=== PATIENT | male | born 1965 | race Caucasian/White ===

== ENCOUNTER 2016-04-18 10:21 | Emergency (ER) | payer OTHER ==
[~2016-04-18 10:21] MED LIST: /ATOR40TA PO; /FENO48TA PO; /WARF5TA PO; ASPI325T PO; ASPI81TA85 PO; CORE25TA PO; CORE40CA PO; INSULANT SC; LISI5TAB PO; LOVA1CAP16 PO; LOVE0.8I SC; METF500T PO; PERC7.5T12 PO; TYLE325T5 PO; VITAD1000T PO
[2016-04-18] MEDS ORDERED: MORPHINE 4 MG/ML 1ML SYRINGE As Ordered ONE (11:01)
[2016-04-18 11:11] LABS: BASO % 0.4 % (0.0-1.0); EOS # 0.2 K/mm3 (0.0-0.50); LARGE UNSTAINED CELL # 0.2 K/mm3 (0.0-0.4); LARGE UNSTAINED CELL % 2.9 % (0.0-4.0); LYMPH # 2.3 K/mm3 (1.5-4.5); LYMPH % 27.9 % (24.0-44.0); MEAN CORPUSCULAR HGB CONC 34.3 g/dl (32.0-36.5); MEAN CORPUSCULAR VOLUME 93.2 fl (80.0-96.0); MONO # 0.7 K/mm3 (0.0-0.8); MONO % 7.8 % (0.0-5.0); NEUTROPHILS # 4.8 K/mm3 (1.8-7.7); PLATELET COUNT, AUTOMATED 215 k/mm3 (150-450); RED CELL DISTRIBUTION WIDTH 12.6 % (11.5-14.5); WHITE BLOOD COUNT 8.3 K/mm3 (4.0-10.0)
[2016-04-18 11:28] LABS: ALBUMIN 3.8 GM/DL (3.2-5.2); ALBUMIN/GLOBULIN RATIO 1.12 (1.00-1.93); ALKALINE PHOSPHATASE 53 U/L (45-117); ALT/SGPT 47 U/L (12-78); AMYLASE 60 U/L (25-115); ANION GAP 8 MEQ/L (8-16); AST/SGOT 20 U/L (15-37); BILIRUBIN,DIRECT < 0.1 MG/DL (0.0-0.2); BILIRUBIN,TOTAL 0.3 MG/DL (0.2-1.0); BLOOD UREA NITROGEN 15 MG/DL (7-18); CALCIUM LEVEL 9.2 MG/DL (8.5-10.1); CARBON DIOXIDE LEVEL 25 MEQ/L (21-32); CHLORIDE LEVEL 108 MEQ/L (98-107); CREATININE FOR GFR 0.98 MG/DL (0.70-1.30); GLOMERULAR FILTRATION RATE > 60.0 (>56); GLUCOSE, FASTING 251 MG/DL (70-105); POTASSIUM SERUM 4.2 MEQ/L (3.5-5.1); SODIUM LEVEL 141 MEQ/L (136-145); TOTAL PROTEIN 7.2 GM/DL (6.4-8.2)
[2016-04-18] MEDS ORDERED: ISOVUE-370 76% 100ML VIAL (Q9967) As Ordered ONE (11:39)
[2016-04-18] MEDS ORDERED: ONDANSETRON 4MG/2ML VIAL (J2405) As Ordered ONE (13:12)
--- NOTE | 2016-04-18 13:17 | ECGEPIP ---
Stationary ECG Study [facility] - ED Test Date: 2016-04-18 Pat Name: OSEAS DANIELLE Department: Room: - Gender: M Trouble Clerk: kahlil : 1965 Requested By: FABRICE GREEN PA-C. Order Number: [id number] Reading MD: Binta Mallory Measurements Intervals [place] Rate: 66 P: 58 ND: 221 QRS: -69 QRSD: 117 T: -6 QT: 390 QTc: 410 Interpretive Statements SINUS RHYTHM WITH FIRST DEGREE AV BLOCK MARKED LEFT AXIS DEVIATION NSTTW ABNORMALITY ANTEROSEPTAL MYOCARDIAL INFARCTION, OF INDETERMINATE AGE IVCD DECREASED RATE 07/23/12 Electronically Signed On 04-18-2016 13:17:15 EST by Binta Mallory
[2016-04-18] MEDS ORDERED: GI COCKTAIL 50ML BTL(HYOSCYAMINE/MAALOX/LIDOCAINE VISCOUS)(1:3:1) As Ordered ONE (13:41)
--- NOTE | 2016-04-18 13:52 | REP ---
CT of the abdomen and pelvis with IV contrast only, 04/18/2016: Indication: Diverticulitis. Comparison: CTA chest only 07/23/2012, which includes a small portion of upper abdomen in field of view. Technique: Following IV contrast administration with 100 ml Isovue 370 mg/ml, 3 mm spiral axial sections were performed through the abdomen and pelvis. Small amount of dependent atelectasis and/or scarring noted in lung bases bilaterally. Pleural based 6 mm nodular density within the lingula is unchanged from prior study 07/23/2012, therefore considered benign. There is mild diffuse fatty infiltration of liver. Spleen, pancreas, gallbladder are normal. Adrenal glands are normal. Kidneys are without hydronephrosis or obstructing ureteral calculi bilaterally. There are two left renal cortical cysts, largest 3 cm diameter. Stomach is contracted. There is a 10 mm dense focus in the proximal gastric body; may be ingested material versus polyp. Moderate fluid is identified within the small bowel as well as a small fat containing lesion within the distal ileum of 7 mm diameter on image 102, series 201. Atherosclerotic changes are noted in the aorta and iliac arteries. The bladder is contracted, prostate is not enlarged. There are few scattered colonic diverticula and under distension/mild mural thickening within the left colon. There is moderate stool within the right and transverse colon. There is no free air or ascites. 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 Impression: No evidence of diverticulitis. There are fluid-filled small bowel loops and mild mural thickening within the left colon which may be secondary to spasm or mild mural thickening. Findings suggest nonspecific enteritis or gastroenteritis. Two left renal cortical cysts, largest 3 cm diameter. 10 mm filling defect within the proximal gastric body, may represent ingested material versus polyp. 7 mm focus of fat within the distal ileum on image 102, series 201. Consider tiny lipomatous lesion. Clinical follow-up recommended. Signed by Sayra Torres MD 04/19/2016 10:56 A
--- NOTE | 2016-04-18 13:52 | EDDOCDS ---
Physician Documentation [facility] Name: Cesar Hernandez Age: 50 yrs Sex: Male : 1965 Arrival Date: 04/18/2016 Time: 10:21 Bed I7 Private MD: Hans Pereyra Disposition: 04/18/16 13:30 Discharged to Home/Self Care. Impression: Infectious gastroenteritis and colitis, unspecified, Acute gastritis - possible gastric poly on CT scan. - Condition is Stable. - Discharge Instructions: Gastritis, Adult, Viral Gastroenteritis. - Prescriptions for Carafate 1 gram Oral Tablet - take 1 tablet by ORAL route 4 times per day take on an empty stomach, beginning on waking and last dose at bedtime; 20 tablet. Protonix 40 mg Oral Tablet - take 1 tablet by ORAL route once daily; 30 tablet. ZOFRAN ODT 4 mg - dissolve 1 tablet by ORAL route 4 times per day As needed do not chew, do not swallow whole; 10 tablet. - Medication Reconciliation, Local Pharmacy Hours form. - Follow up: Hans Pereyra; When: 4 - 5 days; Reason: Recheck today's complaints, Continuance of care. - Problem is new. - Symptoms have improved. Historical: - Allergies: Versed; - Home Meds: 1. lisinopril 20 mg Oral tab 1 tab bid 2. cyclobenzaprine 10 mg Oral tab 1 tab 3 times per day 3. carvedilol phosphate 40 mg oral CM24 1 cap once daily 4. atorvastatin 40 mg oral tab 1 tab once daily 5. Lantus 100 unit/mL Sub-Q soln 40 units nightly 6. metformin 500 mg Oral tab 4 tabs daily 7. cholecalciferol (vitamin D3) 50,000 unit oral tab monthly 8. fenofibrate 160 mg oral tab 1 tab once daily 9. [place]-3 oral 1000mg oral 2 caps twice a day 10. aspirin 81 mg Oral tab 1 tab once daily - PMHx: [place]; Diabetes - IDDM: controlled; Hypertension; Hypercholesterolemia; - PSHx: AICD implanted; nasal septal surgery; - Social history: Smoking status: Patient uses tobacco products, heavy tobacco smoker. No barriers to communication noted, The patient speaks fluent [place], Speaks appropriately for age. - Family history: Not pertinent. - : The pt / caregiver states he / she is not on anticoagulants. Home medication list is obtained from the patient. - Exposure Risk Screening:: None identified. Vital Signs: 04/18 10:25 BP 138 / 76 LA Sitting (auto/lg); Pulse 75 LA; Resp 18 S; Temp 98.6(O); Pulse Ox 96% on mt4 R/A; Weight 111.13 kg / 245 lbs (R); Height 5 ft. 7 in. (170.18 cm) (R); Pain 10/10; 11:40 BP 148 / 80; Pulse 65; Resp 20; Temp 98.0; Pulse Ox 96% ; Pain 2/10; jam1 13:34 BP 148 / 90; Pulse 63; Resp 20; Temp 97.4; Pulse Ox 96% ; Pain 6/10; jam1 10:25 Body Mass Index 38.37 (111.13 kg, 170.18 cm) mt4 MDM: 10:44 Financial registration complete. lg 10:48 IV Saline Lock ordered. ar2 10:48 Undress patient appropriately for examination ordered. ar2 10:48 NS 0.9% 1000 ml IV at 250 mL/hr continuous ordered. ar2 10:48 morphine 4 mg IVP once ordered. ar2 10:49 Amylase Ordered. EDMS 10:49 Basic Metabolic Profile Ordered. EDMS 10:49 CBC with Diff Ordered. EDMS 10:49 Lipase Ordered. EDMS 10:49 Liver Profile Ordered. EDMS 10:49 NOTHING BY MOUTH+DIET ordered. EDMS 10:49 ECG WITH READING ER PHYS+CARDIAG ordered. EDMS 10:49 CT ABD & PELVIS: IV Contrast Only Ordered. EDMS 11:13 [facility] Payment Agreement was scanned into [employer] and attached to record. lg 12:24 Basic Metabolic Profile Reviewed. ar2 12:24 CBC with Diff Reviewed. ar2 12:24 Amylase Reviewed. ar2 12:24 Lipase Reviewed. ar2 12:24 Liver Profile Reviewed. ar2 12:27 UA Ordered. EDMS 12:40 TROPONIN Ordered. EDMS 13:09 Ondansetron 4 mg IVP once ordered. ar2 13:09 Basic Metabolic Profile Reviewed. ar2 13:09 Amylase Reviewed. ar2 13:09 Lipase Reviewed. ar2 13:09 Liver Profile Reviewed. ar2 13:09 TROPONIN Reviewed. ar2 13:29 GI Cocktail - (Alum-Mag Hydroxide-Simeth 30 ml, Lidocaine 10 ml, Hyoscyamine 10 ml) PO ar2 once; Pre-mixed 50mL unit dose ordered. Administered Medications: 11:07 Drug: NS 0.9% 1000 ml [sodium chloride 0.9 % intravenous solution] Route: IV; Rate: 250 dls mL/hr; Site: right hand; 11:07 Drug: morphine 4 mg [morphine 4 mg/mL intravenous cartridge (1 mL)] Route: IVP; Site: dls right hand; 13:17 Drug: Ondansetron 4 mg [ondansetron HCl 2 mg/mL intravenous solution (2 mL)] Route: dls IVP; Site: right antecubital; 13:48 Follow up: Response: Nausea is decreased dls 13:47 Drug: GI Cocktail - (Alum-Mag Hydroxide-Simeth Suspension 225 mg-200 mg-25 mg/5 mL 30 dls ml, Lidocaine Liquid 2 % 10 ml, Hyoscyamine Liquid 10 ml) Route: PO; 13:48 Follow up: Response: Pt left department before re-evaluation is appropriate dls Signatures: Dispatcher [employer] EDCristela Reeder, RN RN dls Augustina Rocha, Reg Reg lg Tawny ColoradoRN RN jo3 Eleno Saucedo PA-C PAVee ar2 Nika Moreno RN RN ttb The chart was reviewed and I authenticate all verbal orders and agree with the evaluation and treatment provided.Corrections: (The following items were deleted from the chart) 12:41 12:29 TROPONIN+LAB ordered. EDMS EDMS Attachments: 11:13 [facility] Payment Agreement lg MTDD
--- NOTE | 2016-04-18 13:52 | EDDOCDS ---
Nurse's Notes [facility] Name: Cesar Hernandez Age: 50 yrs Sex: Male : 1965 Arrival Date: 04/18/2016 Time: 10:21 Bed I7 / 29 Private MD: Hans Pereyra Diagnosis: Infectious gastroenteritis and colitis, unspecified;Acute gastritis-possible gastric poly on CT scan Presentation: 04/18 10:27 Presenting complaint: Patient states: Left upper abdominal pain which started Tuesday jo3 morning. Occurred the first time approximately 1 month ago and PCP told him it was a pulled muscle. Pain increases when pt coughs and moves. Adult Sepsis Screening: The patient does not have new or worsening altered mentation. Patient's respiratory rate is less than 22. Systolic blood pressure is greater than 100. Patient has a qSOFA score of 0- Negative Sepsis Screen. Suicide/Homicide risk assessment- the patient denies having any suicidal and/or homicidal ideations and does not present with any other emotional, behavioral or mental health complaints. Status: Patient is not a food services coordinator or dependent. Transition of care: patient was not received from another setting of care. 10:27 Acuity: LETICIA Level 3 jo3 10:27 Method Of Arrival: Walkin/Carried/Asstd jo3 Triage Assessment: 10:35 General: Appears in no apparent distress, comfortable, Behavior is appropriate for age, jo3 cooperative, pleasant. Pain: Location: Left upper quadrant. HIV screening NA for this visit Offered previously. Neurological: Level of Consciousness is awake, alert, Oriented to person, place, time. Respiratory: Airway is patent Respiratory effort is even, unlabored. Derm: Skin is pink, warm & dry. Historical: - Allergies: Versed; - Home Meds: 1. lisinopril 20 mg Oral tab 1 tab bid 2. cyclobenzaprine 10 mg Oral tab 1 tab 3 times per day 3. carvedilol phosphate 40 mg oral CM24 1 cap once daily 4. atorvastatin 40 mg oral tab 1 tab once daily 5. Lantus 100 unit/mL Sub-Q soln 40 units nightly 6. metformin 500 mg Oral tab 4 tabs daily 7. cholecalciferol (vitamin D3) 50,000 unit oral tab monthly 8. fenofibrate 160 mg oral tab 1 tab once daily 9. [place]-3 oral 1000mg oral 2 caps twice a day 10. aspirin 81 mg Oral tab 1 tab once daily - PMHx: [place]; Diabetes - IDDM: controlled; Hypertension; Hypercholesterolemia; - PSHx: AICD implanted; nasal septal surgery; - Social history: Smoking status: Patient uses tobacco products, heavy tobacco smoker. No barriers to communication noted, The patient speaks fluent [place], Speaks appropriately for age. - Family history: Not pertinent. - : The pt / caregiver states he / she is not on anticoagulants. Home medication list is obtained from the patient. - Exposure Risk Screening:: None identified. Screenin:37 Screening information is obtained from the patient. Primary language is [place]. Fall jam1 risk: No risks identified. Assistance ADL's: requires no assistance with activities of daily living. Abuse/DV Screen: The patient / caregiver reports he/she is: not in a situation that causes fear, pain or injury. Nutritional screening: No deficits noted. Exposure Risk Screening: None identified. Advance Directives: Currently, there is no health care proxy. There is no active DNR order. There is no living will. There is no Power of Cooker Casing. Advance directive information has not previously been placed in an [facility] medical record. Further advance directive information is declined. home support is adequate. Assessment: 10:59 General: Appears in no apparent distress, well nourished, Behavior is appropriate for ttb age, cooperative, pleasant. Pain: Location: left upper quad. Neurological: Level of Consciousness is awake, alert. Cardiovascular: Chest pain is denied. Respiratory: Airway is patent Respiratory effort is even, unlabored, Denies cough, shortness of breath. GI: Abdomen is obese, Reports upper abdominal pain, nausea, Denies constipation, diarrhea, vomiting. : Denies burning with urination, urinary frequency, urgency. Derm: Skin is normal. Injury Description: No known injury. 11:51 General: Appears in no apparent distress, Behavior is cooperative, pt instructed to not mb9 take is metformin for the next [address] with IV contrast. pt instructed to follow up with his PHCP in regards to his metformin in the AM on 04/19/16. pt verbalized his understanding. . Respiratory: Airway is patent Respiratory effort is even, unlabored. Vital Signs: 10:25 BP 138 / 76 LA Sitting (auto/lg); Pulse 75 LA; Resp 18 S; Temp 98.6(O); Pulse Ox 96% on mt4 R/A; Weight 111.13 kg (R); Height 5 ft. 7 in. (170.18 cm) (R); Pain 10/10; 11:40 BP 148 / 80; Pulse 65; Resp 20; Temp 98.0; Pulse Ox 96% ; Pain 2/10; jam1 13:34 BP 148 / 90; Pulse 63; Resp 20; Temp 97.4; Pulse Ox 96% ; Pain 6/10; jam1 10:25 Body Mass Index 38.37 (111.13 kg, 170.18 cm) mt4 Vitals: 10:25 Log In Time: April 18, 2016 at 10:21. mt4 10:25 RN notified that patient meets Red Flag criteria. mt4 ED Course: 10:24 Patient visited by Anahi Singh. mt4 10:24 Hans Pereyra is Private Physician. mt4 10:24 Patient moved to Waiting mt4 10:29 Triage Initiated jo3 10:33 Patient moved to Pre RCE kr3 10:37 Patient visited by Tawny Colorado RN. jo3 10:37 Patient moved to Triage 2 jo3 10:39 Fab[facility] Green [facility]. ar2 10:39 Aries Roy MD is Attending Physician. ar2 10:39 Patient visited by Fabrice Green PA-C. ar2 10:47 Patient moved to I7 / kr3 10:59 Amylase Sent. ttb 10:59 Basic Metabolic Profile Sent. ttb 10:59 CBC with Diff Sent. ttb 10:59 Lipase Sent. ttb 10:59 Liver Profile Sent. ttb 11:01 Patient visited by Nika Moreno RN. ttb 11:02 Pt greeted and oriented to ED. Patient advised of names of staff involved in care, [facility] location of call mena, wait times and NPO status. Patient has correct armband on for positive identification. Placed in gown. Bed in low position. Call light in reach. Side rails up X 1. Adult w/ patient. Door closed. 11:13 [facility] Payment Agreement was scanned into [employer] and attached to record. lg 11:51 Patient visited by Carlos Chua,JOSIE. mb9 12:57 Patient has correct armband on for positive identification. Bed in low position. Call jam1 light in reach. Side rails up X 1. Door closed. 13:09 Patient visited by Cristela Diaz RN. dls 13:10 UA Sent. dls 13:30 Hans Pereyra is Referral Physician. ar2 13:33 Patient visited by Lindy Teran PCA. jam1 13:43 EKG-ADULT Returned. EDMS 13:49 Discontinued IV lock intact, bleeding controlled, pressure dressing applied, No dls redness/swelling at site. No procedures done that require assistance. 13:50 The patient / caregiver is instructed regarding the plan of care and ED course. dls Administered Medications: 11:07 Drug: NS 0.9% 1000 ml [sodium chloride 0.9 % intravenous solution] Route: IV; Rate: 250 dls mL/hr; Site: right hand; 11:07 Drug: morphine 4 mg [morphine 4 mg/mL intravenous cartridge (1 mL)] Route: IVP; Site: dls right hand; 13:17 Drug: Ondansetron 4 mg [ondansetron HCl 2 mg/mL intravenous solution (2 mL)] Route: dls IVP; Site: right antecubital; 13:48 Follow up: Response: Nausea is decreased dls 13:47 Drug: GI Cocktail - (Alum-Mag Hydroxide-Simeth Suspension 225 mg-200 mg-25 mg/5 mL 30 dls ml, Lidocaine Liquid 2 % 10 ml, Hyoscyamine Liquid 10 ml) Route: PO; 13:48 Follow up: Response: Pt left department before re-evaluation is appropriate dls Order Results: Lab Order: Amylase; SPEC'M 04/18/16 10:51 Test: AMYLASE; Value: 60; Range: 25-115; Units: U/L; Status: F Lab Order: Basic Metabolic Profile; SPEC'M 04/18/16 10:51 Test: GLUCOSE, FASTING; Value: 251; Range: 70-105; Abnormal: Above high normal; Units: MG/DL; Status: F Test: BLOOD UREA NITROGEN; Value: 15; Range: 7-18; Units: MG/DL; Status: F Test: CREATININE FOR GFR; Value: 0.98; Range: 0.70-1.30; Units: MG/DL; Status: F Test: GLOMERULAR FILTRATION RATE; Value: > 60.0; Range: >56; Status: F Test: SODIUM LEVEL; Value: 141; Range: 136-145; Units: MEQ/L; Status: F Test: POTASSIUM SERUM; Value: 4.2; Range: 3.5-5.1; Units: MEQ/L; Status: F Test: CHLORIDE LEVEL; Value: 108; Range: 98-107; Abnormal: Above high normal; Units: MEQ/L; Status: F Test: CARBON DIOXIDE LEVEL; Value: 25; Range: 21-32; Units: MEQ/L; Status: F Test: ANION GAP; Value: 8; Range: 8-16; Units: MEQ/L; Status: F Test: CALCIUM LEVEL; Value: 9.2; Range: 8.5-10.1; Units: MG/DL; Status: F Test Note: ; Units are mL/min/1.73 m2 Chronic Kidney Disease Staging per NKF: Stage I & II GFR >=60 Normal to Mildly Decreased Stage III GFR 30-59 Moderately Decreased Stage IV GFR 15-29 Severely Decreased Stage V GFR <15 Very Little GFR Left ESRD GFR <15 on LAMINATION INSPECTOR Lab Order: CBC with Diff; SPEC'M 04/18/16 10:51 Test: WHITE BLOOD COUNT; Value: 8.3; Range: 4.0-10.0; Units: K/mm3; Status: F Test: RED BLOOD COUNT; Value: 4.70; Range: 4.30-6.10; Units: M/mm3; Status: F Test: HEMOGLOBIN; Value: 15.0; Range: 14.0-18.0; Units: g/dl; Status: F Test: HEMATOCRIT; Value: 43.7; Range: 42.0-52.0; Units: %; Status: F Test: MEAN CORPUSCULAR VOLUME; Value: 93.2; Range: 80.0-96.0; Units: fl; Status: F Test: MEAN CORPUSCULAR HEMOGLOBIN; Value: 32.0; Range: 27.0-33.0; Units: pg; Status: F Test: MEAN CORPUSCULAR HGB CONC; Value: 34.3; Range: 32.0-36.5; Units: g/dl; Status: F Test: RED CELL DISTRIBUTION WIDTH; Value: 12.6; Range: 11.5-14.5; Units: %; Status: F Test: PLATELET COUNT, AUTOMATED; Value: 215; Range: 150-450; Units: k/mm3; Status: F Test: NEUTROPHILS %; Value: 58.0; Range: 36.0-66.0; Units: %; Status: F Test: LYMPH %; Value: 27.9; Range: 24.0-44.0; Units: %; Status: F Test: MONO %; Value: 7.8; Range: 0.0-5.0; Abnormal: Above high normal; Units: %; Status: F Test: EOS %; Value: 3.0; Range: 0.0-3.0; Units: %; Status: F Test: BASO %; Value: 0.4; Range: 0.0-1.0; Units: %; Status: F Test: LARGE UNSTAINED CELL %; Value: 2.9; Range: 0.0-4.0; Units: %; Status: F Test: NEUTROPHILS #; Value: 4.8; Range: 1.8-7.7; Units: K/mm3; Status: F Test: LYMPH #; Value: 2.3; Range: 1.5-4.5; Units: K/mm3; Status: F Test: MONO #; Value: 0.7; Range: 0.0-0.8; Units: K/mm3; Status: F Test: EOS #; Value: 0.2; Range: 0.0-0.50; Units: K/mm3; Status: F Test: BASO #; Value: 0.0; Range: 0.0-0.2; Units: K/mm3; Status: F Test: LARGE UNSTAINED CELL #; Value: 0.2; Range: 0.0-0.4; Units: K/mm3; Status: F Lab Order: Lipase; SPEC'M 04/18/16 10:51 Test: LIPASE; Value: 150; Range: 73-393; Units: U/L; Status: F Lab Order: Liver Profile; SPEC'M 04/18/16 10:51 Test: AST/SGOT; Value: 20; Range: 15-37; Units: U/L; Status: F Test: ALT/SGPT; Value: 47; Range: 12-78; Units: U/L; Status: F Test: ALKALINE PHOSPHATASE; Value: 53; Range: 45-117; Units: U/L; Status: F Test: BILIRUBIN,TOTAL; Value: 0.3; Range: 0.2-1.0; Units: MG/DL; Status: F Test: BILIRUBIN,DIRECT; Value: < 0.1; Range: 0.0-0.2; Units: MG/DL; Status: F Test: TOTAL PROTEIN; Value: 7.2; Range: 6.4-8.2; Units: GM/DL; Status: F Test: ALBUMIN; Value: 3.8; Range: 3.2-5.2; Units: GM/DL; Status: F Test: ALBUMIN/GLOBULIN RATIO; Value: 1.12; Range: 1.00-1.93; Status: F Lab Order: UA; SPEC'M 04/18/16 13:05 Test: APPEARANCE, URINE; Value: CLEAR; Range: CLEAR; Status: F Test: COLOR, URINE; Value: YELLOW; Range: YELLOW; Status: F Test: PH,URINE; Value: 6.0; Range: 5.0-9.0; Units: UNITS; Status: F Test: SPECIFIC GRAVITY URINE AUTO; Value: 1.012; Range: 1.002-1.035; Status: F Test: PROTEIN, URINE AUTO; Value: NEGATIVE; Range: NEGATIVE; Units: mg/dL; Status: F Test: GLUCOSE, URINE (UA) AUTO; Value: 2+; Range: NEGATIVE; Abnormal: Above high normal; Units: mg/dL; Status: F Test: KETONE, URINE AUTO; Value: NEGATIVE; Range: NEGATIVE; Units: mg/dL; Status: F Test: UROBILINOGEN, URINE AUTO; Value: 0.2; Range: 0.0-2.0; Units: mg/dL; Status: F Test: BILIRUBIN, URINE AUTO; Value: NEGATIVE; Range: NEGATIVE; Status: F Test: NITRITE, URINE AUTO; Value: NEGATIVE; Range: NEGATIVE; Status: F Test: LEUKOCYTE ESTERASE, URINE AUTO; Value: NEGATIVE; Range: NEGATIVE; Status: F Test: BLOOD, URINE BLOOD; Value: NEGATIVE; Range: NEGATIVE; Status: F Test: WBC, URINE AUTO; Value: 0; Range: 0-3; Units: /HPF; Status: F Test: RBC, URINE AUTO; Value: 2; Range: 0-3; Units: /HPF; Status: F Test: BACTERIA, URINE AUTO; Value: NEGATIVE; Range: NEGATIVE; Status: F Test: SQUAMOUS EPITHELIAL CELL UR AU; Value: 0; Range: 0-6; Units: /HPF; Status: F Test: HYALINE CAST, URINE AUTO; Value: 0; Range: 0-1; Units: /LPF; Status: F Lab Order: TROPONIN; SPEC'M 04/18/16 10:51 Test: TROPONIN I; Value: < 0.02; Range: < 0.10; Units: NG/ML; Status: F Test Note: ; Troponin I Reference Interval for Siemens Synack LOCI: 99th Percentile= 0.00-0.045 ng/ml Risk Stratification: <= 0.10 ng/ml Decreased Risk for Adverse Clinical Events. 0.10-1.50 ng/ml Increased Risk for Adverse Clinical Events. Evaluation of additional criterion and/or repeat testing in 2-6 hours is suggested to rule out myocardial damage. >= 1.50 ng/ml Indicative of Myocardial Injury. Radiology Order: EKG-ADULT Test: EKG-ADULT REASON FOR EXAMINATION: upper abdominal pain; Stationary ECG Study; [facility] - ED; ; Test Date: 2016-04-18; Pat Name: CESAR HERNANDEZ Department:; Room: -; Gender: M Manager Water: kahlil; : 1965 Requested By: FABRICE GREEN PA-C.; Order Number: [id number] Reading MD: Binta Mallory; Measurements; Intervals [place]; Rate: 66 P: 58; [place]: 221 QRS: -69; QRSD: 117 T: -6; QT: 390; QTc: 410; Interpretive Statements; SINUS RHYTHM WITH FIRST DEGREE AV BLOCK; MARKED LEFT AXIS DEVIATION; NSTTW ABNORMALITY; ANTEROSEPTAL MYOCARDIAL INFARCTION, OF INDETERMINATE AGE; IVCD; DECREASED RATE 07/23/12; Electronically Signed On 04-18-2016 13:17:15 EST by Binta Mallory; Outcome: 13:30 Discharge ordered by Provider. ar2 13:49 Discharge Assessment: Patient awake, alert and oriented x 3. No cognitive and/or dls functional deficits noted. Patient verbalized understanding of disposition instructions. patient administered narcotics - no. The following High Risk Discharge criteria are identified: None. Discharged to home ambulatory, with family. Condition: stable. Discharge instructions given to patient, Instructed on discharge instructions, follow up and referral plans. medication usage, Demonstrated understanding of instructions, medications, Pt was receptive of discharge instructions/ teaching. Prescriptions given X 3. CT Study completed. Property :Personal belongings accompany Pt. 13:50 Patient left the ED. dls Signatures: Dispatcher [employer] EDMS Cristela Diaz, RN RN dls Lindy Teran, PAINTING TECHNICIAN PAINTING TECHNICIAN jam1 Augustina Rocha, Reg Reg lg Claudine Iniguez,RN RN kr3 Tawny ColoradoRN RN tee3 Fabrice Green, PA-C PA-C shandra2 Anahi Singh mt4 Nika Moreno, RN RN Carlos MorinRN RN mb9 MTDPhilip
--- NOTE | 2016-04-20 14:52 | EDDOCDS ---
Nurse's Notes [facility] Name: Cesar Hernandez Age: 50 yrs Sex: Male : 1965 Arrival Date: 04/18/2016 Time: 10:21 Bed I7 / 29 Private MD: Hans Pereyra Diagnosis: Infectious gastroenteritis and colitis, unspecified;Acute gastritis-possible gastric poly on CT scan Presentation: 04/18 10:27 Presenting complaint: Patient states: Left upper abdominal pain which started Tuesday jo3 morning. Occurred the first time approximately 1 month ago and PCP told him it was a pulled muscle. Pain increases when pt coughs and moves. Adult Sepsis Screening: The patient does not have new or worsening altered mentation. Patient's respiratory rate is less than 22. Systolic blood pressure is greater than 100. Patient has a qSOFA score of 0- Negative Sepsis Screen. Suicide/Homicide risk assessment- the patient denies having any suicidal and/or homicidal ideations and does not present with any other emotional, behavioral or mental health complaints. Status: Patient is not a family services specialist or dependent. Transition of care: patient was not received from another setting of care. 10:27 Acuity: LETICIA Level 3 jo3 10:27 Method Of Arrival: Walkin/Carried/Asstd jo3 Triage Assessment: 10:35 General: Appears in no apparent distress, comfortable, Behavior is appropriate for age, jo3 cooperative, pleasant. Pain: Location: Left upper quadrant. HIV screening NA for this visit Offered previously. Neurological: Level of Consciousness is awake, alert, Oriented to person, place, time. Respiratory: Airway is patent Respiratory effort is even, unlabored. Derm: Skin is pink, warm & dry. Historical: - Allergies: Versed; - Home Meds: 1. lisinopril 20 mg Oral tab 1 tab bid 2. cyclobenzaprine 10 mg Oral tab 1 tab 3 times per day 3. carvedilol phosphate 40 mg oral CM24 1 cap once daily 4. atorvastatin 40 mg oral tab 1 tab once daily 5. Lantus 100 unit/mL Sub-Q soln 40 units nightly 6. metformin 500 mg Oral tab 4 tabs daily 7. cholecalciferol (vitamin D3) 50,000 unit oral tab monthly 8. fenofibrate 160 mg oral tab 1 tab once daily 9. [place]-3 oral 1000mg oral 2 caps twice a day 10. aspirin 81 mg Oral tab 1 tab once daily - PMHx: [place]; Diabetes - IDDM: controlled; Hypertension; Hypercholesterolemia; - PSHx: AICD implanted; nasal septal surgery; - Social history: Smoking status: Patient uses tobacco products, heavy tobacco smoker. No barriers to communication noted, The patient speaks fluent Danish, Speaks appropriately for age. - Family history: Not pertinent. - : The pt / caregiver states he / she is not on anticoagulants. Home medication list is obtained from the patient. - Exposure Risk Screening:: None identified. Screenin:37 Screening information is obtained from the patient. Primary language is Danish. Fall jam1 risk: No risks identified. Assistance ADL's: requires no assistance with activities of daily living. Abuse/DV Screen: The patient / caregiver reports he/she is: not in a situation that causes fear, pain or injury. Nutritional screening: No deficits noted. Exposure Risk Screening: None identified. Advance Directives: Currently, there is no health care proxy. There is no active DNR order. There is no living will. There is no Power of Gravity Prospector. Advance directive information has not previously been placed in an [facility] medical record. Further advance directive information is declined. home support is adequate. Assessment: 10:59 General: Appears in no apparent distress, well nourished, Behavior is appropriate for ttb age, cooperative, pleasant. Pain: Location: left upper quad. Neurological: Level of Consciousness is awake, alert. Cardiovascular: Chest pain is denied. Respiratory: Airway is patent Respiratory effort is even, unlabored, Denies cough, shortness of breath. GI: Abdomen is obese, Reports upper abdominal pain, nausea, Denies constipation, diarrhea, vomiting. : Denies burning with urination, urinary frequency, urgency. Derm: Skin is normal. Injury Description: No known injury. 11:51 General: Appears in no apparent distress, Behavior is cooperative, pt instructed to not mb9 take is metformin for the next [address] with IV contrast. pt instructed to follow up with his PHCP in regards to his metformin in the AM on 04/19/16. pt verbalized his understanding. . Respiratory: Airway is patent Respiratory effort is even, unlabored. Vital Signs: 10:25 BP 138 / 76 LA Sitting (auto/lg); Pulse 75 LA; Resp 18 S; Temp 98.6(O); Pulse Ox 96% on mt4 R/A; Weight 111.13 kg (R); Height 5 ft. 7 in. (170.18 cm) (R); Pain 10/10; 11:40 BP 148 / 80; Pulse 65; Resp 20; Temp 98.0; Pulse Ox 96% ; Pain 2/10; jam1 13:34 BP 148 / 90; Pulse 63; Resp 20; Temp 97.4; Pulse Ox 96% ; Pain 6/10; jam1 10:25 Body Mass Index 38.37 (111.13 kg, 170.18 cm) mt4 Vitals: 10:25 Log In Time: April 18, 2016 at 10:21. mt4 10:25 RN notified that patient meets Red Flag criteria. mt4 ED Course: 10:24 Patient visited by Anahi Singh. mt4 10:24 Hans Pereyra is Private Physician. mt4 10:24 Patient moved to Waiting mt4 10:29 Triage Initiated jo3 10:33 Patient moved to Pre RCE kr3 10:37 Patient visited by Tawny Colorado RN. jo3 10:37 Patient moved to Triage 2 jo3 10:39 [facility] ar2 10:39 Aries Roy MD is Attending Physician. ar2 10:39 Patient visited by Fabrice Saucedo PA-C. ar2 10:47 Patient moved to I7 / kr3 10:59 Amylase Sent. ttb 10:59 Basic Metabolic Profile Sent. ttb 10:59 CBC with Diff Sent. ttb 10:59 Lipase Sent. ttb 10:59 Liver Profile Sent. ttb 11:01 Patient visited by Nika Moreno RN. ttb 11:02 Pt greeted and oriented to ED. Patient advised of names of staff involved in care, [facility] location of call mena, wait times and NPO status. Patient has correct armband on for positive identification. Placed in gown. Bed in low position. Call light in reach. Side rails up X 1. Adult w/ patient. Door closed. 11:13 [facility] Payment Agreement was scanned into [employer] and attached to record. lg 11:51 Patient visited by Carlos Chua,JOSIE. mb9 12:57 Patient has correct armband on for positive identification. Bed in low position. Call jam1 light in reach. Side rails up X 1. Door closed. 13:09 Patient visited by Cristela Diaz RN. dls 13:10 UA Sent. dls 13:30 Hans Pereyra is Referral Physician. ar2 13:33 Patient visited by Lindy Teran PCA. jam1 13:43 EKG-ADULT Returned. EDMS 13:49 Discontinued IV lock intact, bleeding controlled, pressure dressing applied, No dls redness/swelling at site. No procedures done that require assistance. 13:50 The patient / caregiver is instructed regarding the plan of care and ED course. dls 14:20 CT ABD & PELVIS: IV Contrast Only Returned. EDMS 17:33 ECG/EKG was scanned into [employer] and attached to record. kf3 19:53 T-Sheet-- Draft Copy was scanned into [employer] and attached to record. klr Administered Medications: 11:07 Drug: NS 0.9% 1000 ml [sodium chloride 0.9 % intravenous solution] Route: IV; Rate: 250 dls mL/hr; Site: right hand; 11:07 Drug: morphine 4 mg [morphine 4 mg/mL intravenous cartridge (1 mL)] Route: IVP; Site: dls right hand; 13:17 Drug: Ondansetron 4 mg [ondansetron HCl 2 mg/mL intravenous solution (2 mL)] Route: dls IVP; Site: right antecubital; 13:48 Follow up: Response: Nausea is decreased dls 13:47 Drug: GI Cocktail - (Alum-Mag Hydroxide-Simeth Suspension 225 mg-200 mg-25 mg/5 mL 30 dls ml, Lidocaine Liquid 2 % 10 ml, Hyoscyamine Liquid 10 ml) Route: PO; 13:48 Follow up: Response: Pt left department before re-evaluation is appropriate dls Order Results: Lab Order: Amylase; SPEC'M 04/18/16 10:51 Test: AMYLASE; Value: 60; Range: 25-115; Units: U/L; Status: F Lab Order: Basic Metabolic Profile; SPEC'M 04/18/16 10:51 Test: GLUCOSE, FASTING; Value: 251; Range: 70-105; Abnormal: Above high normal; Units: MG/DL; Status: F Test: BLOOD UREA NITROGEN; Value: 15; Range: 7-18; Units: MG/DL; Status: F Test: CREATININE FOR GFR; Value: 0.98; Range: 0.70-1.30; Units: MG/DL; Status: F Test: GLOMERULAR FILTRATION RATE; Value: > 60.0; Range: >56; Status: F Test: SODIUM LEVEL; Value: 141; Range: 136-145; Units: MEQ/L; Status: F Test: POTASSIUM SERUM; Value: 4.2; Range: 3.5-5.1; Units: MEQ/L; Status: F Test: CHLORIDE LEVEL; Value: 108; Range: 98-107; Abnormal: Above high normal; Units: MEQ/L; Status: F Test: CARBON DIOXIDE LEVEL; Value: 25; Range: 21-32; Units: MEQ/L; Status: F Test: ANION GAP; Value: 8; Range: 8-16; Units: MEQ/L; Status: F Test: CALCIUM LEVEL; Value: 9.2; Range: 8.5-10.1; Units: MG/DL; Status: F Test Note: ; Units are mL/min/1.73 m2 Chronic Kidney Disease Staging per NKF: Stage I & II GFR >=60 Normal to Mildly Decreased Stage III GFR 30-59 Moderately Decreased Stage IV GFR 15-29 Severely Decreased Stage V GFR <15 Very Little GFR Left ESRD GFR <15 on [employer] [employer] Lab Order: CBC with Diff; SPEC'M 04/18/16 10:51 Test: WHITE BLOOD COUNT; Value: 8.3; Range: 4.0-10.0; Units: K/mm3; Status: F Test: RED BLOOD COUNT; Value: 4.70; Range: 4.30-6.10; Units: M/mm3; Status: F Test: HEMOGLOBIN; Value: 15.0; Range: 14.0-18.0; Units: g/dl; Status: F Test: HEMATOCRIT; Value: 43.7; Range: 42.0-52.0; Units: %; Status: F Test: MEAN CORPUSCULAR VOLUME; Value: 93.2; Range: 80.0-96.0; Units: fl; Status: F Test: MEAN CORPUSCULAR HEMOGLOBIN; Value: 32.0; Range: 27.0-33.0; Units: pg; Status: F Test: MEAN CORPUSCULAR HGB CONC; Value: 34.3; Range: 32.0-36.5; Units: g/dl; Status: F Test: RED CELL DISTRIBUTION WIDTH; Value: 12.6; Range: 11.5-14.5; Units: %; Status: F Test: PLATELET COUNT, AUTOMATED; Value: 215; Range: 150-450; Units: k/mm3; Status: F Test: NEUTROPHILS %; Value: 58.0; Range: 36.0-66.0; Units: %; Status: F Test: LYMPH %; Value: 27.9; Range: 24.0-44.0; Units: %; Status: F Test: MONO %; Value: 7.8; Range: 0.0-5.0; Abnormal: Above high normal; Units: %; Status: F Test: EOS %; Value: 3.0; Range: 0.0-3.0; Units: %; Status: F Test: BASO %; Value: 0.4; Range: 0.0-1.0; Units: %; Status: F Test: LARGE UNSTAINED CELL %; Value: 2.9; Range: 0.0-4.0; Units: %; Status: F Test: NEUTROPHILS #; Value: 4.8; Range: 1.8-7.7; Units: K/mm3; Status: F Test: LYMPH #; Value: 2.3; Range: 1.5-4.5; Units: K/mm3; Status: F Test: MONO #; Value: 0.7; Range: 0.0-0.8; Units: K/mm3; Status: F Test: EOS #; Value: 0.2; Range: 0.0-0.50; Units: K/mm3; Status: F Test: BASO #; Value: 0.0; Range: 0.0-0.2; Units: K/mm3; Status: F Test: LARGE UNSTAINED CELL #; Value: 0.2; Range: 0.0-0.4; Units: K/mm3; Status: F Lab Order: Lipase; SPEC'M 04/18/16 10:51 Test: LIPASE; Value: 150; Range: 73-393; Units: U/L; Status: F Lab Order: Liver Profile; SPEC'M 04/18/16 10:51 Test: AST/SGOT; Value: 20; Range: 15-37; Units: U/L; Status: F Test: ALT/SGPT; Value: 47; Range: 12-78; Units: U/L; Status: F Test: ALKALINE PHOSPHATASE; Value: 53; Range: 45-117; Units: U/L; Status: F Test: BILIRUBIN,TOTAL; Value: 0.3; Range: 0.2-1.0; Units: MG/DL; Status: F Test: BILIRUBIN,DIRECT; Value: < 0.1; Range: 0.0-0.2; Units: MG/DL; Status: F Test: TOTAL PROTEIN; Value: 7.2; Range: 6.4-8.2; Units: GM/DL; Status: F Test: ALBUMIN; Value: 3.8; Range: 3.2-5.2; Units: GM/DL; Status: F Test: ALBUMIN/GLOBULIN RATIO; Value: 1.12; Range: 1.00-1.93; Status: F Lab Order: ; SPEC'M 04/18/16 13:05 Test: APPEARANCE, URINE; Value: CLEAR; Range: CLEAR; Status: F Test: COLOR, URINE; Value: YELLOW; Range: YELLOW; Status: F Test: PH,URINE; Value: 6.0; Range: 5.0-9.0; Units: UNITS; Status: F Test: SPECIFIC GRAVITY URINE AUTO; Value: 1.012; Range: 1.002-1.035; Status: F Test: PROTEIN, URINE AUTO; Value: NEGATIVE; Range: NEGATIVE; Units: mg/dL; Status: F Test: GLUCOSE, URINE (UA) AUTO; Value: 2+; Range: NEGATIVE; Abnormal: Above high normal; Units: mg/dL; Status: F Test: KETONE, URINE AUTO; Value: NEGATIVE; Range: NEGATIVE; Units: mg/dL; Status: F Test: UROBILINOGEN, URINE AUTO; Value: 0.2; Range: 0.0-2.0; Units: mg/dL; Status: F Test: BILIRUBIN, URINE AUTO; Value: NEGATIVE; Range: NEGATIVE; Status: F Test: NITRITE, URINE AUTO; Value: NEGATIVE; Range: NEGATIVE; Status: F Test: LEUKOCYTE ESTERASE, URINE AUTO; Value: NEGATIVE; Range: NEGATIVE; Status: F Test: BLOOD, URINE BLOOD; Value: NEGATIVE; Range: NEGATIVE; Status: F Test: WBC, URINE AUTO; Value: 0; Range: 0-3; Units: /HPF; Status: F Test: RBC, URINE AUTO; Value: 2; Range: 0-3; Units: /HPF; Status: F Test: BACTERIA, URINE AUTO; Value: NEGATIVE; Range: NEGATIVE; Status: F Test: SQUAMOUS EPITHELIAL CELL UR AU; Value: 0; Range: 0-6; Units: /HPF; Status: F Test: HYALINE CAST, URINE AUTO; Value: 0; Range: 0-1; Units: /LPF; Status: F Lab Order: TROPONIN; SPEC'M 04/18/16 10:51 Test: TROPONIN I; Value: < 0.02; Range: < 0.10; Units: NG/ML; Status: F Test Note: ; Troponin I Reference Interval for Siemens Mathias LOCI: 99th Percentile= 0.00-0.045 ng/ml Risk Stratification: <= 0.10 ng/ml Decreased Risk for Adverse Clinical Events. 0.10-1.50 ng/ml Increased Risk for Adverse Clinical Events. Evaluation of additional criterion and/or repeat testing in 2-6 hours is suggested to rule out myocardial damage. >= 1.50 ng/ml Indicative of Myocardial Injury. Radiology Order: EKG-ADULT Test: EKG-ADULT REASON FOR EXAMINATION: upper abdominal pain; Stationary ECG Study; [facility] - ED; ; Test Date: 2016-04-18; Pat Name: CESAR HERNANDEZ Department:; Room: -; Gender: M Certified Hyperbaric Technician: kahlil; : 1965 Requested By: FABRICE SAUCEDO PA-C.; Order Number: [id number] Reading MD: Binta Mallory; Measurements; Intervals [place]; Rate: 66 P: 58; WI: 221 QRS: -69; QRSD: 117 T: -6; QT: 390; QTc: 410; Interpretive Statements; SINUS RHYTHM WITH FIRST DEGREE AV BLOCK; MARKED LEFT AXIS DEVIATION; NSTTW ABNORMALITY; ANTEROSEPTAL MYOCARDIAL INFARCTION, OF INDETERMINATE AGE; IVCD; DECREASED RATE 07/23/12; Electronically Signed On 04-18-2016 13:17:15 EST by Binta Mallory; Radiology Order: CT ABD & PELVIS: IV Contrast Only Test: CT ABD & PELVIS: IV Contrast Only REASON FOR EXAMINATION: Diverticulitis; CT of the abdomen and pelvis with IV contrast only, 04/18/2016:; ; Indication: Diverticulitis.; ; Comparison: CTA chest only 07/23/2012, which includes a small portion of upper; abdomen in field of view.; ; Technique: Following IV contrast administration with 100 ml Isovue 370 mg/ml, 3; mm spiral axial sections were performed through the abdomen and pelvis.; ; Small amount of dependent atelectasis and/or scarring noted in lung bases; bilaterally. Pleural based 6 mm nodular density within the lingula is unchanged; from prior study 07/23/2012, therefore considered benign. There is mild diffuse; fatty infiltration of liver. Spleen, pancreas, gallbladder are normal. Adrenal; glands are normal. Kidneys are without hydronephrosis or obstructing ureteral; calculi bilaterally. There are two left renal cortical cysts, largest 3 cm; diameter. Stomach is contracted. There is a 10 mm dense focus in the proximal; gastric body; may be ingested material versus polyp. Moderate fluid is; identified within the small bowel as well as a small fat containing lesion within; the distal ileum of 7 mm diameter on image 102, series 201. Atherosclerotic; changes are noted in the aorta and iliac arteries.; ; The bladder is contracted, prostate is not enlarged. There are few scattered; colonic diverticula and under distension/mild mural thickening within the left; colon. There is moderate stool within the right and transverse colon. There is; no free air or ascites. 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 There are fluid-filled small bowel loops and; mild mural thickening within the left colon which may be secondary to spasm or; mild mural thickening. Findings suggest nonspecific enteritis or; gastroenteritis.; ; Two left renal cortical cysts, largest 3 cm diameter.; ; 10 mm filling defect within the proximal gastric body, may represent ingested; material versus polyp.; ; 7 mm focus of fat within the distal ileum on image 102, series 201. Consider; tiny lipomatous lesion.; ; Clinical follow-up recommended.; ; ; Signed by; Sayra Torres MD 04/19/2016 10:56 A; Outcome: 13:30 Discharge ordered by Provider. ar2 13:49 Discharge Assessment: Patient awake, alert and oriented x 3. No cognitive and/or dls functional deficits noted. Patient verbalized understanding of disposition instructions. patient administered narcotics - no. The following High Risk Discharge criteria are identified: None. Discharged to home ambulatory, with family. Condition: stable. Discharge instructions given to patient, Instructed on discharge instructions, follow up and referral plans. medication usage, Demonstrated understanding of instructions, medications, Pt was receptive of discharge instructions/ teaching. Prescriptions given X 3. CT Study completed. Property :Personal belongings accompany Pt. 13:50 Patient left the ED. dls Signatures: Dispatcher [employer] EDMS Cristela Diaz, RN RN dls Lindy Teran, MARKETING GRAPHICS SPECIALIST MARKETING GRAPHICS SPECIALIST jam1 Augustina Rocha, Reg Reg lg Claudine Iniguez RN RN kr3 Tawny ColoradoRN RN tee3 Cristopher Jamil, Reg Reg kf3 Fabrice Saucedo, PA-Serenity PA-C ar2 Anahi Singh mt4 Nika Moreno, RN RN Carlos MoirnRN RN Nazanin George Chart Complete MTDPhilip
--- NOTE | 2016-04-20 14:52 | EDDOCDS ---
Physician Documentation [facility] Name: Cesar Hernandez Age: 50 yrs Sex: Male : 1965 Arrival Date: 04/18/2016 Time: 10:21 Bed I7 Private MD: Hans Pereyra Disposition: 04/18/16 13:30 Discharged to Home/Self Care. Impression: Infectious gastroenteritis and colitis, unspecified, Acute gastritis - possible gastric poly on CT scan. - Condition is Stable. - Discharge Instructions: Gastritis, Adult, Viral Gastroenteritis. - Prescriptions for Carafate 1 gram Oral Tablet - take 1 tablet by ORAL route 4 times per day take on an empty stomach, beginning on waking and last dose at bedtime; 20 tablet. Protonix 40 mg Oral Tablet - take 1 tablet by ORAL route once daily; 30 tablet. ZOFRAN ODT 4 mg - dissolve 1 tablet by ORAL route 4 times per day As needed do not chew, do not swallow whole; 10 tablet. - Medication Reconciliation, Local Pharmacy Hours form. - Follow up: Hans Pereyra; When: 4 - 5 days; Reason: Recheck today's complaints, Continuance of care. - Problem is new. - Symptoms have improved. Historical: - Allergies: Versed; - Home Meds: 1. lisinopril 20 mg Oral tab 1 tab bid 2. cyclobenzaprine 10 mg Oral tab 1 tab 3 times per day 3. carvedilol phosphate 40 mg oral CM24 1 cap once daily 4. atorvastatin 40 mg oral tab 1 tab once daily 5. Lantus 100 unit/mL Sub-Q soln 40 units nightly 6. metformin 500 mg Oral tab 4 tabs daily 7. cholecalciferol (vitamin D3) 50,000 unit oral tab monthly 8. fenofibrate 160 mg oral tab 1 tab once daily 9. Post-3 oral 1000mg oral 2 caps twice a day 10. aspirin 81 mg Oral tab 1 tab once daily - PMHx: [place]; Diabetes - IDDM: controlled; Hypertension; Hypercholesterolemia; - PSHx: AICD implanted; nasal septal surgery; - Social history: Smoking status: Patient uses tobacco products, heavy tobacco smoker. No barriers to communication noted, The patient speaks fluent Lao, Speaks appropriately for age. - Family history: Not pertinent. - : The pt / caregiver states he / she is not on anticoagulants. Home medication list is obtained from the patient. - Exposure Risk Screening:: None identified. Vital Signs: 04/18 10:25 BP 138 / 76 LA Sitting (auto/lg); Pulse 75 LA; Resp 18 S; Temp 98.6(O); Pulse Ox 96% on mt4 R/A; Weight 111.13 kg / 245 lbs (R); Height 5 ft. 7 in. (170.18 cm) (R); Pain 10/10; 11:40 BP 148 / 80; Pulse 65; Resp 20; Temp 98.0; Pulse Ox 96% ; Pain 2/10; jam1 13:34 BP 148 / 90; Pulse 63; Resp 20; Temp 97.4; Pulse Ox 96% ; Pain 6/10; jam1 10:25 Body Mass Index 38.37 (111.13 kg, 170.18 cm) mt4 MDM: 10:44 Financial registration complete. lg 10:48 IV Saline Lock ordered. ar2 10:48 Undress patient appropriately for examination ordered. ar2 10:48 NS 0.9% 1000 ml IV at 250 mL/hr continuous ordered. ar2 10:48 morphine 4 mg IVP once ordered. ar2 10:49 Amylase Ordered. EDMS 10:49 Basic Metabolic Profile Ordered. EDMS 10:49 CBC with Diff Ordered. EDMS 10:49 Lipase Ordered. EDMS 10:49 Liver Profile Ordered. EDMS 10:49 NOTHING BY MOUTH+DIET ordered. EDMS 10:49 ECG WITH READING ER PHYS+CARDIAG ordered. EDMS 10:49 CT ABD & PELVIS: IV Contrast Only Ordered. EDMS 11:13 [facility] Payment Agreement was scanned into [employer] and attached to record. lg 12:24 Basic Metabolic Profile Reviewed. ar2 12:24 CBC with Diff Reviewed. ar2 12:24 Amylase Reviewed. ar2 12:24 Lipase Reviewed. ar2 12:24 Liver Profile Reviewed. ar2 12:27 UA Ordered. EDMS 12:40 TROPONIN Ordered. EDMS 13:09 Ondansetron 4 mg IVP once ordered. ar2 13:09 Basic Metabolic Profile Reviewed. ar2 13:09 Amylase Reviewed. ar2 13:09 Lipase Reviewed. ar2 13:09 Liver Profile Reviewed. ar2 13:09 TROPONIN Reviewed. ar2 13:29 GI Cocktail - (Alum-Mag Hydroxide-Simeth 30 ml, Lidocaine 10 ml, Hyoscyamine 10 ml) PO ar2 once; Pre-mixed 50mL unit dose ordered. 17:33 ECG/EKG was scanned into [employer] and attached to record. kf3 19:53 T-Sheet-- Draft Copy was scanned into [employer] and attached to record. klr Administered Medications: 11:07 Drug: NS 0.9% 1000 ml [sodium chloride 0.9 % intravenous solution] Route: IV; Rate: 250 dls mL/hr; Site: right hand; 11:07 Drug: morphine 4 mg [morphine 4 mg/mL intravenous cartridge (1 mL)] Route: IVP; Site: dls right hand; 13:17 Drug: Ondansetron 4 mg [ondansetron HCl 2 mg/mL intravenous solution (2 mL)] Route: dls IVP; Site: right antecubital; 13:48 Follow up: Response: Nausea is decreased dls 13:47 Drug: GI Cocktail - (Alum-Mag Hydroxide-Simeth Suspension 225 mg-200 mg-25 mg/5 mL 30 dls ml, Lidocaine Liquid 2 % 10 ml, Hyoscyamine Liquid 10 ml) Route: PO; 13:48 Follow up: Response: Pt left department before re-evaluation is appropriate dls Signatures: Dispatcher [employer] EDMS Cristela Diaz RN RN dls Ganter, LoriLee, Reg Reg lg Tawny ColoradoRN RN jo3 Cristopher Jamil, Reg Reg kf3 Eleno Saucedo, PAVee RUANO ar2 Nika Moreno RN RN ttb Redder, Kathie klsamuel The chart was reviewed and I authenticate all verbal orders and agree with the evaluation and treatment provided.Corrections: (The following items were deleted from the chart) 12:41 12:29 TROPONIN+LAB ordered. EDMS EDMS Attachments: 11:13 [facility] Payment Agreement lg 17:33 ECG/EKG kf3 19:53 T-Sheet-- Draft Copy klr Chart Complete MTDD
--- NOTE | 2016-04-20 14:52 | EDDOCDS ---
Physician Documentation [facility] Name: Cesar Hernandez Age: 50 yrs Sex: Male : 1965 Arrival Date: 04/18/2016 Time: 10:21 Bed I7 Private MD: Hans Pereyra Disposition: 04/18/16 13:30 Discharged to Home/Self Care. Impression: Infectious gastroenteritis and colitis, unspecified, Acute gastritis - possible gastric poly on CT scan. - Condition is Stable. - Discharge Instructions: Gastritis, Adult, Viral Gastroenteritis. - Prescriptions for Carafate 1 gram Oral Tablet - take 1 tablet by ORAL route 4 times per day take on an empty stomach, beginning on waking and last dose at bedtime; 20 tablet. Protonix 40 mg Oral Tablet - take 1 tablet by ORAL route once daily; 30 tablet. ZOFRAN ODT 4 mg - dissolve 1 tablet by ORAL route 4 times per day As needed do not chew, do not swallow whole; 10 tablet. - Medication Reconciliation, Local Pharmacy Hours form. - Follow up: Hans Pereyra; When: 4 - 5 days; Reason: Recheck today's complaints, Continuance of care. - Problem is new. - Symptoms have improved. Historical: - Allergies: Versed; - Home Meds: 1. lisinopril 20 mg Oral tab 1 tab bid 2. cyclobenzaprine 10 mg Oral tab 1 tab 3 times per day 3. carvedilol phosphate 40 mg oral CM24 1 cap once daily 4. atorvastatin 40 mg oral tab 1 tab once daily 5. Lantus 100 unit/mL Sub-Q soln 40 units nightly 6. metformin 500 mg Oral tab 4 tabs daily 7. cholecalciferol (vitamin D3) 50,000 unit oral tab monthly 8. fenofibrate 160 mg oral tab 1 tab once daily 9. [place]-3 oral 1000mg oral 2 caps twice a day 10. aspirin 81 mg Oral tab 1 tab once daily - PMHx: [place]; Diabetes - IDDM: controlled; Hypertension; Hypercholesterolemia; - PSHx: AICD implanted; nasal septal surgery; - Social history: Smoking status: Patient uses tobacco products, heavy tobacco smoker. No barriers to communication noted, The patient speaks fluent Korean, Speaks appropriately for age. - Family history: Not pertinent. - : The pt / caregiver states he / she is not on anticoagulants. Home medication list is obtained from the patient. - Exposure Risk Screening:: None identified. Vital Signs: 04/18 10:25 BP 138 / 76 LA Sitting (auto/lg); Pulse 75 LA; Resp 18 S; Temp 98.6(O); Pulse Ox 96% on mt4 R/A; Weight 111.13 kg / 245 lbs (R); Height 5 ft. 7 in. (170.18 cm) (R); Pain 10/10; 11:40 BP 148 / 80; Pulse 65; Resp 20; Temp 98.0; Pulse Ox 96% ; Pain 2/10; jam1 13:34 BP 148 / 90; Pulse 63; Resp 20; Temp 97.4; Pulse Ox 96% ; Pain 6/10; jam1 10:25 Body Mass Index 38.37 (111.13 kg, 170.18 cm) mt4 MDM: 10:44 Financial registration complete. lg 10:48 IV Saline Lock ordered. ar2 10:48 Undress patient appropriately for examination ordered. ar2 10:48 NS 0.9% 1000 ml IV at 250 mL/hr continuous ordered. ar2 10:48 morphine 4 mg IVP once ordered. ar2 10:49 Amylase Ordered. EDMS 10:49 Basic Metabolic Profile Ordered. EDMS 10:49 CBC with Diff Ordered. EDMS 10:49 Lipase Ordered. EDMS 10:49 Liver Profile Ordered. EDMS 10:49 NOTHING BY MOUTH+DIET ordered. EDMS 10:49 ECG WITH READING ER PHYS+CARDIAG ordered. EDMS 10:49 CT ABD & PELVIS: IV Contrast Only Ordered. EDMS 11:13 [facility] [place] was scanned into [employer] and attached to record. lg 12:24 Basic Metabolic Profile Reviewed. ar2 12:24 CBC with Diff Reviewed. ar2 12:24 Amylase Reviewed. ar2 12:24 Lipase Reviewed. ar2 12:24 Liver Profile Reviewed. ar2 12:27 UA Ordered. EDMS 12:40 TROPONIN Ordered. EDMS 13:09 Ondansetron 4 mg IVP once ordered. ar2 13:09 Basic Metabolic Profile Reviewed. ar2 13:09 Amylase Reviewed. ar2 13:09 Lipase Reviewed. ar2 13:09 Liver Profile Reviewed. ar2 13:09 TROPONIN Reviewed. ar2 13:29 GI Cocktail - (Alum-Mag Hydroxide-Simeth 30 ml, Lidocaine 10 ml, Hyoscyamine 10 ml) PO ar2 once; Pre-mixed 50mL unit dose ordered. 17:33 ECG/EKG was scanned into [employer] and attached to record. kf3 19:53 T-Sheet-- Draft Copy was scanned into [employer] and attached to record. klr Administered Medications: 11:07 Drug: NS 0.9% 1000 ml [sodium chloride 0.9 % intravenous solution] Route: IV; Rate: 250 dls mL/hr; Site: right hand; 11:07 Drug: morphine 4 mg [morphine 4 mg/mL intravenous cartridge (1 mL)] Route: IVP; Site: dls right hand; 13:17 Drug: Ondansetron 4 mg [ondansetron HCl 2 mg/mL intravenous solution (2 mL)] Route: dls IVP; Site: right antecubital; 13:48 Follow up: Response: Nausea is decreased dls 13:47 Drug: GI Cocktail - (Alum-Mag Hydroxide-Simeth Suspension 225 mg-200 mg-25 mg/5 mL 30 dls ml, Lidocaine Liquid 2 % 10 ml, Hyoscyamine Liquid 10 ml) Route: PO; 13:48 Follow up: Response: Pt left department before re-evaluation is appropriate dls Signatures: Dispatcher [employer] EDMS Cristela Diaz RN RN dls Ganter, LoriLee, Reg Reg lg Tawny ColoradoRN RN jo3 Cristopher Jamil, Reg Reg kf3 Eleno Saucedo, PAVee RUANO ar2 Nika Moreno RN RN ttb Redder, Kathie klsamuel The chart was reviewed and I authenticate all verbal orders and agree with the evaluation and treatment provided.Corrections: (The following items were deleted from the chart) 12:41 12:29 TROPONIN+LAB ordered. EDMS EDMS Attachments: 11:13 [facility] [place] Agreement lg 17:33 ECG/EKG kf3 19:53 T-Sheet-- Draft Copy klr Chart Complete MTDD
--- NOTE | 2016-04-20 21:10 | EDDOCDS ---
Physician Documentation [facility] Name: Cesar Hernandez Age: 50 yrs Sex: Male : 1965 Arrival Date: 04/18/2016 Time: 10:21 Bed I7 Private MD: Hans Pereyra Disposition: 04/18/16 13:30 Discharged to Home/Self Care. Impression: Infectious gastroenteritis and colitis, unspecified, Acute gastritis - possible gastric poly on CT scan. - Condition is Stable. - Discharge Instructions: Gastritis, Adult, Viral Gastroenteritis. - Prescriptions for Carafate 1 gram Oral Tablet - take 1 tablet by ORAL route 4 times per day take on an empty stomach, beginning on waking and last dose at bedtime; 20 tablet. Protonix 40 mg Oral Tablet - take 1 tablet by ORAL route once daily; 30 tablet. ZOFRAN ODT 4 mg - dissolve 1 tablet by ORAL route 4 times per day As needed do not chew, do not swallow whole; 10 tablet. - Medication Reconciliation, Local Pharmacy Hours form. - Follow up: Hans Pereyra; When: 4 - 5 days; Reason: Recheck today's complaints, Continuance of care. - Problem is new. - Symptoms have improved. Historical: - Allergies: Versed; - Home Meds: 1. lisinopril 20 mg Oral tab 1 tab bid 2. cyclobenzaprine 10 mg Oral tab 1 tab 3 times per day 3. carvedilol phosphate 40 mg oral CM24 1 cap once daily 4. atorvastatin 40 mg oral tab 1 tab once daily 5. Lantus 100 unit/mL Sub-Q soln 40 units nightly 6. metformin 500 mg Oral tab 4 tabs daily 7. cholecalciferol (vitamin D3) 50,000 unit oral tab monthly 8. fenofibrate 160 mg oral tab 1 tab once daily 9. [place]-3 oral 1000mg oral 2 caps twice a day 10. aspirin 81 mg Oral tab 1 tab once daily - PMHx: [place]; Diabetes - IDDM: controlled; Hypertension; Hypercholesterolemia; - PSHx: AICD implanted; nasal septal surgery; - Social history: Smoking status: Patient uses tobacco products, heavy tobacco smoker. No barriers to communication noted, The patient speaks fluent Tajik, Speaks appropriately for age. - Family history: Not pertinent. - : The pt / caregiver states he / she is not on anticoagulants. Home medication list is obtained from the patient. - Exposure Risk Screening:: None identified. Vital Signs: 04/18 10:25 BP 138 / 76 LA Sitting (auto/lg); Pulse 75 LA; Resp 18 S; Temp 98.6(O); Pulse Ox 96% on mt4 R/A; Weight 111.13 kg / 245 lbs (R); Height 5 ft. 7 in. (170.18 cm) (R); Pain 10/10; 11:40 BP 148 / 80; Pulse 65; Resp 20; Temp 98.0; Pulse Ox 96% ; Pain 2/10; jam1 13:34 BP 148 / 90; Pulse 63; Resp 20; Temp 97.4; Pulse Ox 96% ; Pain 6/10; jam1 10:25 Body Mass Index 38.37 (111.13 kg, 170.18 cm) mt4 MDM: 10:44 Financial registration complete. lg 10:48 IV Saline Lock ordered. ar2 10:48 Undress patient appropriately for examination ordered. ar2 10:48 NS 0.9% 1000 ml IV at 250 mL/hr continuous ordered. ar2 10:48 morphine 4 mg IVP once ordered. ar2 10:49 Amylase Ordered. EDMS 10:49 Basic Metabolic Profile Ordered. EDMS 10:49 CBC with Diff Ordered. EDMS 10:49 Lipase Ordered. EDMS 10:49 Liver Profile Ordered. EDMS 10:49 NOTHING BY MOUTH+DIET ordered. EDMS 10:49 ECG WITH READING ER PHYS+CARDIAG ordered. EDMS 10:49 CT ABD & PELVIS: IV Contrast Only Ordered. EDMS 11:13 [facility] [place] Payment Agreement was scanned into [employer] and attached to record. lg 12:24 Basic Metabolic Profile Reviewed. ar2 12:24 CBC with Diff Reviewed. ar2 12:24 Amylase Reviewed. ar2 12:24 Lipase Reviewed. ar2 12:24 Liver Profile Reviewed. ar2 12:27 UA Ordered. EDMS 12:40 TROPONIN Ordered. EDMS 13:09 Ondansetron 4 mg IVP once ordered. ar2 13:09 Basic Metabolic Profile Reviewed. ar2 13:09 Amylase Reviewed. ar2 13:09 Lipase Reviewed. ar2 13:09 Liver Profile Reviewed. ar2 13:09 TROPONIN Reviewed. ar2 13:29 GI Cocktail - (Alum-Mag Hydroxide-Simeth 30 ml, Lidocaine 10 ml, Hyoscyamine 10 ml) PO ar2 once; Pre-mixed 50mL unit dose ordered. 17:33 ECG/EKG was scanned into [employer] and attached to record. kf3 19:53 T-Sheet-- Draft Copy was scanned into [employer] and attached to record. klr Administered Medications: 11:07 Drug: NS 0.9% 1000 ml [sodium chloride 0.9 % intravenous solution] Route: IV; Rate: 250 dls mL/hr; Site: right hand; 11:07 Drug: morphine 4 mg [morphine 4 mg/mL intravenous cartridge (1 mL)] Route: IVP; Site: dls right hand; 13:17 Drug: Ondansetron 4 mg [ondansetron HCl 2 mg/mL intravenous solution (2 mL)] Route: dls IVP; Site: right antecubital; 13:48 Follow up: Response: Nausea is decreased dls 13:47 Drug: GI Cocktail - (Alum-Mag Hydroxide-Simeth Suspension 225 mg-200 mg-25 mg/5 mL 30 dls ml, Lidocaine Liquid 2 % 10 ml, Hyoscyamine Liquid 10 ml) Route: PO; 13:48 Follow up: Response: Pt left department before re-evaluation is appropriate dls Addendum: 04/20/2016 21:09 Radiology Callback: A certified letter will be sent to the patient / guardian. pt sent ml certified letter re formal read of ct ab/p . needs fu mlg. Signatures: Dispatcher [facility] Bebeto Santos MD MD ml Cristela Diaz RN Augustina Dhillon, Reg Reg lg Tawny [place] RN RN tee3 Cristopher Jamil, Reg Reg kf3 Eleno Saucedo PA-C PA-C ar2 Nika Moreno RN RN ttb Redder, Kathie klr The chart was reviewed and I authenticate all verbal orders and agree with the evaluation and treatment provided.Corrections: (The following items were deleted from the chart) 04/18 12:41 12:29 TROPONIN+LAB ordered. EDMS EDMS Attachments: 11:13 [facility] [place] Payment Agreement lg 17:33 ECG/EKG kf3 19:53 T-Sheet-- Draft Copy klr MTDD
--- NOTE | 2016-04-20 21:10 | EDDOCDS ---
Nurse's Notes [facility] Name: Cesar Hernandez Age: 50 yrs Sex: Male : 1965 Arrival Date: 04/18/2016 Time: 10:21 Bed I7 / 29 Private MD: Hans Pereyra Diagnosis: Infectious gastroenteritis and colitis, unspecified;Acute gastritis-possible gastric poly on CT scan Presentation: 04/18 10:27 Presenting complaint: Patient states: Left upper abdominal pain which started Tuesday jo3 morning. Occurred the first time approximately 1 month ago and PCP told him it was a pulled muscle. Pain increases when pt coughs and moves. Adult Sepsis Screening: The patient does not have new or worsening altered mentation. Patient's respiratory rate is less than 22. Systolic blood pressure is greater than 100. Patient has a qSOFA score of 0- Negative Sepsis Screen. Suicide/Homicide risk assessment- the patient denies having any suicidal and/or homicidal ideations and does not present with any other emotional, behavioral or mental health complaints. 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 Transition of care: patient was not received from another setting of care. 10:27 Acuity: LETICIA Level 3 jo3 10:27 Method Of Arrival: Walkin/Carried/Asstd jo3 Triage Assessment: 10:35 General: Appears in no apparent distress, comfortable, Behavior is appropriate for age, jo3 cooperative, pleasant. Pain: Location: Left upper quadrant. HIV screening NA for this visit Offered previously. Neurological: Level of Consciousness is awake, alert, Oriented to person, place, time. Respiratory: Airway is patent Respiratory effort is even, unlabored. Derm: Skin is pink, warm & dry. Historical: - Allergies: Versed; - Home Meds: 1. lisinopril 20 mg Oral tab 1 tab bid 2. cyclobenzaprine 10 mg Oral tab 1 tab 3 times per day 3. carvedilol phosphate 40 mg oral CM24 1 cap once daily 4. atorvastatin 40 mg oral tab 1 tab once daily 5. Lantus 100 unit/mL Sub-Q soln 40 units nightly 6. metformin 500 mg Oral tab 4 tabs daily 7. cholecalciferol (vitamin D3) 50,000 unit oral tab monthly 8. fenofibrate 160 mg oral tab 1 tab once daily 9. [place]-3 oral 1000mg oral 2 caps twice a day 10. aspirin 81 mg Oral tab 1 tab once daily - PMHx: [place]; Diabetes - IDDM: controlled; Hypertension; Hypercholesterolemia; - PSHx: AICD implanted; nasal septal surgery; - Social history: Smoking status: Patient uses tobacco products, heavy tobacco smoker. No barriers to communication noted, The patient speaks fluent Khmer, Speaks appropriately for age. - Family history: Not pertinent. - : The pt / caregiver states he / she is not on anticoagulants. Home medication list is obtained from the patient. - Exposure Risk Screening:: None identified. Screenin:37 Screening information is obtained from the patient. Primary language is Khmer. Fall jam1 risk: No risks identified. Assistance ADL's: requires no assistance with activities of daily living. Abuse/DV Screen: The patient / caregiver reports he/she is: not in a situation that causes fear, pain or injury. Nutritional screening: No deficits noted. Exposure Risk Screening: None identified. Advance Directives: Currently, there is no health care proxy. There is no active DNR order. There is no living will. There is no Power of Weaving Machine Operator. Advance directive information has not previously been placed in an [facility] medical record. Further advance directive information is declined. home support is adequate. Assessment: 10:59 General: Appears in no apparent distress, well nourished, Behavior is appropriate for ttb age, cooperative, pleasant. Pain: Location: left upper quad. Neurological: Level of Consciousness is awake, alert. Cardiovascular: Chest pain is denied. Respiratory: Airway is patent Respiratory effort is even, unlabored, Denies cough, shortness of breath. GI: Abdomen is obese, Reports upper abdominal pain, nausea, Denies constipation, diarrhea, vomiting. : Denies burning with urination, urinary frequency, urgency. Derm: Skin is normal. Injury Description: No known injury. 11:51 General: Appears in no apparent distress, Behavior is cooperative, pt instructed to not mb9 take is metformin for the next [address] with IV contrast. pt instructed to follow up with his PHCP in regards to his metformin in the AM on 04/19/16. pt verbalized his understanding. . Respiratory: Airway is patent Respiratory effort is even, unlabored. Vital Signs: 10:25 BP 138 / 76 LA Sitting (auto/lg); Pulse 75 LA; Resp 18 S; Temp 98.6(O); Pulse Ox 96% on mt4 R/A; Weight 111.13 kg (R); Height 5 ft. 7 in. (170.18 cm) (R); Pain 10/10; 11:40 BP 148 / 80; Pulse 65; Resp 20; Temp 98.0; Pulse Ox 96% ; Pain 2/10; jam1 13:34 BP 148 / 90; Pulse 63; Resp 20; Temp 97.4; Pulse Ox 96% ; Pain 6/10; jam1 10:25 Body Mass Index 38.37 (111.13 kg, 170.18 cm) mt4 Vitals: 10:25 Log In Time: April 18, 2016 at 10:21. mt4 10:25 RN notified that patient meets Red Flag criteria. mt4 ED Course: 10:24 Patient visited by Anahi Singh. mt4 10:24 Hans Pereyra is Private Physician. mt4 10:24 Patient moved to Waiting mt4 10:29 Triage Initiated jo3 10:33 Patient moved to Pre RCE kr3 10:37 Patient visited by Tawny [place] RN. jo3 10:37 Patient moved to Triage 2 jo3 10:39 [facility]ced[facility]-C [facility]. ar2 10:39 Aries Roy MD is Attending Physician. ar2 10:39 Patient visited by Fabrice Saucedo PA-C. ar2 10:47 Patient moved to I7 / kr3 10:59 Amylase Sent. ttb 10:59 Basic Metabolic Profile Sent. ttb 10:59 CBC with Diff Sent. ttb 10:59 Lipase Sent. ttb 10:59 Liver Profile Sent. ttb 11:01 Patient visited by Nika Moreno RN. ttb 11:02 Pt greeted and oriented to ED. Patient advised of names of staff involved in care, [facility] location of call mena, wait times and NPO status. Patient has correct armband on for positive identification. Placed in gown. Bed in low position. Call light in reach. Side rails up X 1. Adult w/ patient. Door closed. 11:13 [facility] Payment Agreement was scanned into [employer] and attached to record. lg 11:51 Patient visited by Carlos Chua,JOSIE. mb9 12:57 Patient has correct armband on for positive identification. Bed in low position. Call jam1 light in reach. Side rails up X 1. Door closed. 13:09 Patient visited by Cristela Diaz RN. dls 13:10 UA Sent. dls 13:30 Hans Pereyra is Referral Physician. ar2 13:33 Patient visited by Lindy Teran PCA. jam1 13:43 EKG-ADULT Returned. EDMS 13:49 Discontinued IV lock intact, bleeding controlled, pressure dressing applied, No dls redness/swelling at site. No procedures done that require assistance. 13:50 The patient / caregiver is instructed regarding the plan of care and ED course. dls 14:20 CT ABD & PELVIS: IV Contrast Only Returned. EDMS 17:33 ECG/EKG was scanned into [employer] and attached to record. kf3 19:53 T-Sheet-- Draft Copy was scanned into [employer] and attached to record. klr Administered Medications: 11:07 Drug: NS 0.9% 1000 ml [sodium chloride 0.9 % intravenous solution] Route: IV; Rate: 250 dls mL/hr; Site: right hand; 11:07 Drug: morphine 4 mg [morphine 4 mg/mL intravenous cartridge (1 mL)] Route: IVP; Site: dls right hand; 13:17 Drug: Ondansetron 4 mg [ondansetron HCl 2 mg/mL intravenous solution (2 mL)] Route: dls IVP; Site: right antecubital; 13:48 Follow up: Response: Nausea is decreased dls 13:47 Drug: GI Cocktail - (Alum-Mag Hydroxide-Simeth Suspension 225 mg-200 mg-25 mg/5 mL 30 dls ml, Lidocaine Liquid 2 % 10 ml, Hyoscyamine Liquid 10 ml) Route: PO; 13:48 Follow up: Response: Pt left department before re-evaluation is appropriate dls Order Results: Lab Order: Amylase; SPEC'M 04/18/16 10:51 Test: AMYLASE; Value: 60; Range: 25-115; Units: U/L; Status: F Lab Order: Basic Metabolic Profile; SPEC'M 04/18/16 10:51 Test: GLUCOSE, FASTING; Value: 251; Range: 70-105; Abnormal: Above high normal; Units: MG/DL; Status: F Test: BLOOD UREA NITROGEN; Value: 15; Range: 7-18; Units: MG/DL; Status: F Test: CREATININE FOR GFR; Value: 0.98; Range: 0.70-1.30; Units: MG/DL; Status: F Test: GLOMERULAR FILTRATION RATE; Value: > 60.0; Range: >56; Status: F Test: SODIUM LEVEL; Value: 141; Range: 136-145; Units: MEQ/L; Status: F Test: POTASSIUM SERUM; Value: 4.2; Range: 3.5-5.1; Units: MEQ/L; Status: F Test: CHLORIDE LEVEL; Value: 108; Range: 98-107; Abnormal: Above high normal; Units: MEQ/L; Status: F Test: CARBON DIOXIDE LEVEL; Value: 25; Range: 21-32; Units: MEQ/L; Status: F Test: ANION GAP; Value: 8; Range: 8-16; Units: MEQ/L; Status: F Test: CALCIUM LEVEL; Value: 9.2; Range: 8.5-10.1; Units: MG/DL; Status: F Test Note: ; Units are mL/min/1.73 m2 Chronic Kidney Disease Staging per NKF: Stage I & II GFR >=60 Normal to Mildly Decreased Stage III GFR 30-59 Moderately Decreased Stage IV GFR 15-29 Severely Decreased Stage V GFR <15 Very Little GFR Left ESRD GFR <15 on MATRIX REPAIRER Lab Order: CBC with Diff; SPEC'M 04/18/16 10:51 Test: WHITE BLOOD COUNT; Value: 8.3; Range: 4.0-10.0; Units: K/mm3; Status: F Test: RED BLOOD COUNT; Value: 4.70; Range: 4.30-6.10; Units: M/mm3; Status: F Test: HEMOGLOBIN; Value: 15.0; Range: 14.0-18.0; Units: g/dl; Status: F Test: HEMATOCRIT; Value: 43.7; Range: 42.0-52.0; Units: %; Status: F Test: MEAN CORPUSCULAR VOLUME; Value: 93.2; Range: 80.0-96.0; Units: fl; Status: F Test: MEAN CORPUSCULAR HEMOGLOBIN; Value: 32.0; Range: 27.0-33.0; Units: pg; Status: F Test: MEAN CORPUSCULAR HGB CONC; Value: 34.3; Range: 32.0-36.5; Units: g/dl; Status: F Test: RED CELL DISTRIBUTION WIDTH; Value: 12.6; Range: 11.5-14.5; Units: %; Status: F Test: PLATELET COUNT, AUTOMATED; Value: 215; Range: 150-450; Units: k/mm3; Status: F Test: NEUTROPHILS %; Value: 58.0; Range: 36.0-66.0; Units: %; Status: F Test: LYMPH %; Value: 27.9; Range: 24.0-44.0; Units: %; Status: F Test: MONO %; Value: 7.8; Range: 0.0-5.0; Abnormal: Above high normal; Units: %; Status: F Test: EOS %; Value: 3.0; Range: 0.0-3.0; Units: %; Status: F Test: BASO %; Value: 0.4; Range: 0.0-1.0; Units: %; Status: F Test: LARGE UNSTAINED CELL %; Value: 2.9; Range: 0.0-4.0; Units: %; Status: F Test: NEUTROPHILS #; Value: 4.8; Range: 1.8-7.7; Units: K/mm3; Status: F Test: LYMPH #; Value: 2.3; Range: 1.5-4.5; Units: K/mm3; Status: F Test: MONO #; Value: 0.7; Range: 0.0-0.8; Units: K/mm3; Status: F Test: EOS #; Value: 0.2; Range: 0.0-0.50; Units: K/mm3; Status: F Test: BASO #; Value: 0.0; Range: 0.0-0.2; Units: K/mm3; Status: F Test: LARGE UNSTAINED CELL #; Value: 0.2; Range: 0.0-0.4; Units: K/mm3; Status: F Lab Order: Lipase; SPEC'M 04/18/16 10:51 Test: LIPASE; Value: 150; Range: 73-393; Units: U/L; Status: F Lab Order: Liver Profile; SPEC'M 04/18/16 10:51 Test: AST/SGOT; Value: 20; Range: 15-37; Units: U/L; Status: F Test: ALT/SGPT; Value: 47; Range: 12-78; Units: U/L; Status: F Test: ALKALINE PHOSPHATASE; Value: 53; Range: 45-117; Units: U/L; Status: F Test: BILIRUBIN,TOTAL; Value: 0.3; Range: 0.2-1.0; Units: MG/DL; Status: F Test: BILIRUBIN,DIRECT; Value: < 0.1; Range: 0.0-0.2; Units: MG/DL; Status: F Test: TOTAL PROTEIN; Value: 7.2; Range: 6.4-8.2; Units: GM/DL; Status: F Test: ALBUMIN; Value: 3.8; Range: 3.2-5.2; Units: GM/DL; Status: F Test: ALBUMIN/GLOBULIN RATIO; Value: 1.12; Range: 1.00-1.93; Status: F Lab Order: ; SPEC'M 04/18/16 13:05 Test: APPEARANCE, URINE; Value: CLEAR; Range: CLEAR; Status: F Test: COLOR, URINE; Value: YELLOW; Range: YELLOW; Status: F Test: PH,URINE; Value: 6.0; Range: 5.0-9.0; Units: UNITS; Status: F Test: SPECIFIC GRAVITY URINE AUTO; Value: 1.012; Range: 1.002-1.035; Status: F Test: PROTEIN, URINE AUTO; Value: NEGATIVE; Range: NEGATIVE; Units: mg/dL; Status: F Test: GLUCOSE, URINE (UA) AUTO; Value: 2+; Range: NEGATIVE; Abnormal: Above high normal; Units: mg/dL; Status: F Test: KETONE, URINE AUTO; Value: NEGATIVE; Range: NEGATIVE; Units: mg/dL; Status: F Test: UROBILINOGEN, URINE AUTO; Value: 0.2; Range: 0.0-2.0; Units: mg/dL; Status: F Test: BILIRUBIN, URINE AUTO; Value: NEGATIVE; Range: NEGATIVE; Status: F Test: NITRITE, URINE AUTO; Value: NEGATIVE; Range: NEGATIVE; Status: F Test: LEUKOCYTE ESTERASE, URINE AUTO; Value: NEGATIVE; Range: NEGATIVE; Status: F Test: BLOOD, URINE BLOOD; Value: NEGATIVE; Range: NEGATIVE; Status: F Test: WBC, URINE AUTO; Value: 0; Range: 0-3; Units: /HPF; Status: F Test: RBC, URINE AUTO; Value: 2; Range: 0-3; Units: /HPF; Status: F Test: BACTERIA, URINE AUTO; Value: NEGATIVE; Range: NEGATIVE; Status: F Test: SQUAMOUS EPITHELIAL CELL UR AU; Value: 0; Range: 0-6; Units: /HPF; Status: F Test: HYALINE CAST, URINE AUTO; Value: 0; Range: 0-1; Units: /LPF; Status: F Lab Order: TROPONIN; SPEC'M 04/18/16 10:51 Test: TROPONIN I; Value: < 0.02; Range: < 0.10; Units: NG/ML; Status: F Test Note: ; Troponin I Reference Interval for [employer] [place] LOCI: 99th Percentile= 0.00-0.045 ng/ml Risk Stratification: <= 0.10 ng/ml Decreased Risk for Adverse Clinical Events. 0.10-1.50 ng/ml Increased Risk for Adverse Clinical Events. Evaluation of additional criterion and/or repeat testing in 2-6 hours is suggested to rule out myocardial damage. >= 1.50 ng/ml Indicative of Myocardial Injury. Radiology Order: EKG-ADULT Test: EKG-ADULT REASON FOR EXAMINATION: upper abdominal pain; Stationary ECG Study; [facility] - ED; ; Test Date: 2016-04-18; Pat Name: CESAR HERNANDEZ Department:; Room: -; Gender: M Press Offbearer: kahlil; : 1965 Requested By: FABRICE SAUCEDO PA-C.; Order Number: [id number] Reading MD: Binta Mallory; Measurements; Intervals Muse; Rate: 66 P: 58; TX: 221 QRS: -69; QRSD: 117 T: -6; QT: 390; QTc: 410; Interpretive Statements; SINUS RHYTHM WITH FIRST DEGREE AV BLOCK; MARKED LEFT AXIS DEVIATION; NSTTW ABNORMALITY; ANTEROSEPTAL MYOCARDIAL INFARCTION, OF INDETERMINATE AGE; IVCD; DECREASED RATE 07/23/12; Electronically Signed On 04-18-2016 13:17:15 EST by Binta Mallory; Radiology Order: CT ABD & PELVIS: IV Contrast Only Test: CT ABD & PELVIS: IV Contrast Only REASON FOR EXAMINATION: Diverticulitis; CT of the abdomen and pelvis with IV contrast only, 04/18/2016:; ; Indication: Diverticulitis.; ; Comparison: CTA chest only 07/23/2012, which includes a small portion of upper; abdomen in field of view.; ; Technique: Following IV contrast administration with 100 ml Isovue 370 mg/ml, 3; mm spiral axial sections were performed through the abdomen and pelvis.; ; Small amount of dependent atelectasis and/or scarring noted in lung bases; bilaterally. Pleural based 6 mm nodular density within the lingula is unchanged; from prior study 07/23/2012, therefore considered benign. There is mild diffuse; fatty infiltration of liver. Spleen, pancreas, gallbladder are normal. Adrenal; glands are normal. Kidneys are without hydronephrosis or obstructing ureteral; calculi bilaterally. There are two left renal cortical cysts, largest 3 cm; diameter. Stomach is contracted. There is a 10 mm dense focus in the proximal; gastric body; may be ingested material versus polyp. Moderate fluid is; identified within the small bowel as well as a small fat containing lesion within; the distal ileum of 7 mm diameter on image 102, series 201. Atherosclerotic; changes are noted in the aorta and iliac arteries.; ; The bladder is contracted, prostate is not enlarged. There are few scattered; colonic diverticula and under distension/mild mural thickening within the left; colon. There is moderate stool within the right and transverse colon. There is; no free air or ascites. 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 There are fluid-filled small bowel loops and; mild mural thickening within the left colon which may be secondary to spasm or; mild mural thickening. Findings suggest nonspecific enteritis or; gastroenteritis.; ; Two left renal cortical cysts, largest 3 cm diameter.; ; 10 mm filling defect within the proximal gastric body, may represent ingested; material versus polyp.; ; 7 mm focus of fat within the distal ileum on image 102, series 201. Consider; tiny lipomatous lesion.; ; Clinical follow-up recommended.; ; ; Signed by; Sayra Torres MD 04/19/2016 10:56 A; Outcome: 13:30 Discharge ordered by Provider. ar2 13:49 Discharge Assessment: Patient awake, alert and oriented x 3. No cognitive and/or dls functional deficits noted. Patient verbalized understanding of disposition instructions. patient administered narcotics - no. The following High Risk Discharge criteria are identified: None. Discharged to home ambulatory, with family. Condition: stable. Discharge instructions given to patient, Instructed on discharge instructions, follow up and referral plans. medication usage, Demonstrated understanding of instructions, medications, Pt was receptive of discharge instructions/ teaching. Prescriptions given X 3. CT Study completed. Property :Personal belongings accompany Pt. 13:50 Patient left the ED. dls Signatures: Dispatcher [employer] EDMS Cristela Diaz, RN RN dls Lindy Teran, RN ORTHO RN ORTHO jam1 Augustina Rocha, Reg Reg lg Claudine IniguezRN RN kr3 Tawny ColoradoRN RN tee3 Cristopher Jamil, Reg Reg kf3 Fabrice Saucedo, PA-Serenity PA-C ar2 Anahi Singh mt4 Nika Moreno RN RN Carlos MorinRN RN Nazanin George GREGORY
--- NOTE | 2016-04-20 21:10 | EDDOCDS ---
Physician Documentation [facility] Name: Cesar Hernandez Age: 50 yrs Sex: Male : 1965 Arrival Date: 04/18/2016 Time: 10:21 Bed I7 Private MD: Hans Pereyra Disposition: 04/18/16 13:30 Discharged to Home/Self Care. Impression: Infectious gastroenteritis and colitis, unspecified, Acute gastritis - possible gastric poly on CT scan. - Condition is Stable. - Discharge Instructions: Gastritis, Adult, Viral Gastroenteritis. - Prescriptions for Carafate 1 gram Oral Tablet - take 1 tablet by ORAL route 4 times per day take on an empty stomach, beginning on waking and last dose at bedtime; 20 tablet. Protonix 40 mg Oral Tablet - take 1 tablet by ORAL route once daily; 30 tablet. ZOFRAN ODT 4 mg - dissolve 1 tablet by ORAL route 4 times per day As needed do not chew, do not swallow whole; 10 tablet. - Medication Reconciliation, Local Pharmacy Hours form. - Follow up: Hans Pereyra; When: 4 - 5 days; Reason: Recheck today's complaints, Continuance of care. - Problem is new. - Symptoms have improved. Historical: - Allergies: Versed; - Home Meds: 1. lisinopril 20 mg Oral tab 1 tab bid 2. cyclobenzaprine 10 mg Oral tab 1 tab 3 times per day 3. carvedilol phosphate 40 mg oral CM24 1 cap once daily 4. atorvastatin 40 mg oral tab 1 tab once daily 5. Lantus 100 unit/mL Sub-Q soln 40 units nightly 6. metformin 500 mg Oral tab 4 tabs daily 7. cholecalciferol (vitamin D3) 50,000 unit oral tab monthly 8. fenofibrate 160 mg oral tab 1 tab once daily 9. [place]-3 oral 1000mg oral 2 caps twice a day 10. aspirin 81 mg Oral tab 1 tab once daily - PMHx: [place]; Diabetes - IDDM: controlled; Hypertension; Hypercholesterolemia; - PSHx: AICD implanted; nasal septal surgery; - Social history: Smoking status: Patient uses tobacco products, heavy tobacco smoker. No barriers to communication noted, The patient speaks fluent Estonian, Speaks appropriately for age. - Family history: Not pertinent. - : The pt / caregiver states he / she is not on anticoagulants. Home medication list is obtained from the patient. - Exposure Risk Screening:: None identified. Vital Signs: 04/18 10:25 BP 138 / 76 LA Sitting (auto/lg); Pulse 75 LA; Resp 18 S; Temp 98.6(O); Pulse Ox 96% on mt4 R/A; Weight 111.13 kg / 245 lbs (R); Height 5 ft. 7 in. (170.18 cm) (R); Pain 10/10; 11:40 BP 148 / 80; Pulse 65; Resp 20; Temp 98.0; Pulse Ox 96% ; Pain 2/10; jam1 13:34 BP 148 / 90; Pulse 63; Resp 20; Temp 97.4; Pulse Ox 96% ; Pain 6/10; jam1 10:25 Body Mass Index 38.37 (111.13 kg, 170.18 cm) mt4 MDM: 10:44 Financial registration complete. lg 10:48 IV Saline Lock ordered. ar2 10:48 Undress patient appropriately for examination ordered. ar2 10:48 NS 0.9% 1000 ml IV at 250 mL/hr continuous ordered. ar2 10:48 morphine 4 mg IVP once ordered. ar2 10:49 Amylase Ordered. EDMS 10:49 Basic Metabolic Profile Ordered. EDMS 10:49 CBC with Diff Ordered. EDMS 10:49 Lipase Ordered. EDMS 10:49 Liver Profile Ordered. EDMS 10:49 NOTHING BY MOUTH+DIET ordered. EDMS 10:49 ECG WITH READING ER PHYS+CARDIAG ordered. EDMS 10:49 CT ABD & PELVIS: IV Contrast Only Ordered. EDMS 11:13 [facility] [place] was scanned into [employer] and attached to record. lg 12:24 Basic Metabolic Profile Reviewed. ar2 12:24 CBC with Diff Reviewed. ar2 12:24 Amylase Reviewed. ar2 12:24 Lipase Reviewed. ar2 12:24 Liver Profile Reviewed. ar2 12:27 UA Ordered. EDMS 12:40 TROPONIN Ordered. EDMS 13:09 Ondansetron 4 mg IVP once ordered. ar2 13:09 Basic Metabolic Profile Reviewed. ar2 13:09 Amylase Reviewed. ar2 13:09 Lipase Reviewed. ar2 13:09 Liver Profile Reviewed. ar2 13:09 TROPONIN Reviewed. ar2 13:29 GI Cocktail - (Alum-Mag Hydroxide-Simeth 30 ml, Lidocaine 10 ml, Hyoscyamine 10 ml) PO ar2 once; Pre-mixed 50mL unit dose ordered. 17:33 ECG/EKG was scanned into [employer] and attached to record. kf3 19:53 T-Sheet-- Draft Copy was scanned into [employer] and attached to record. klr Administered Medications: 11:07 Drug: NS 0.9% 1000 ml [sodium chloride 0.9 % intravenous solution] Route: IV; Rate: 250 dls mL/hr; Site: right hand; 11:07 Drug: morphine 4 mg [morphine 4 mg/mL intravenous cartridge (1 mL)] Route: IVP; Site: dls right hand; 13:17 Drug: Ondansetron 4 mg [ondansetron HCl 2 mg/mL intravenous solution (2 mL)] Route: dls IVP; Site: right antecubital; 13:48 Follow up: Response: Nausea is decreased dls 13:47 Drug: GI Cocktail - (Alum-Mag Hydroxide-Simeth Suspension 225 mg-200 mg-25 mg/5 mL 30 dls ml, Lidocaine Liquid 2 % 10 ml, Hyoscyamine Liquid 10 ml) Route: PO; 13:48 Follow up: Response: Pt left department before re-evaluation is appropriate dls Addendum: 04/20/2016 21:09 Radiology Callback: A certified letter will be sent to the patient / guardian. pt sent ml certified letter re formal read of ct ab/p . needs fu mlg. Signatures: Dispatcher [facility] ED[facility] Bebeto Santos MD MD ml Cristela Diaz RN Augustina Dhillon, Reg Reg lg Tawny [place] RN RN tee3 Cristopher Jamil, Reg Reg kf3 Eleno Saucedo PA-C PA-C ar2 Nika Moreno RN RN ttb Redder, Kathie klr The chart was reviewed and I authenticate all verbal orders and agree with the evaluation and treatment provided.Corrections: (The following items were deleted from the chart) 04/18 12:41 12:29 TROPONIN+LAB ordered. EDMS EDMS Attachments: 11:13 [facility] [place] Agreement lg 17:33 ECG/EKG kf3 19:53 T-Sheet-- Draft Copy klr MTDD
--- NOTE | 2016-04-20 21:11 | EDDOCDS ---
Nurse's Notes [facility] Name: Cesar Hernandez Age: 50 yrs Sex: Male : 1965 Arrival Date: 04/18/2016 Time: 10:21 Bed I7 / 29 Private MD: Hans Pereyra Diagnosis: Infectious gastroenteritis and colitis, unspecified;Acute gastritis-possible gastric poly on CT scan Presentation: 04/18 10:27 Presenting complaint: Patient states: Left upper abdominal pain which started Tuesday jo3 morning. Occurred the first time approximately 1 month ago and PCP told him it was a pulled muscle. Pain increases when pt coughs and moves. Adult Sepsis Screening: The patient does not have new or worsening altered mentation. Patient's respiratory rate is less than 22. Systolic blood pressure is greater than 100. Patient has a qSOFA score of 0- Negative Sepsis Screen. Suicide/Homicide risk assessment- the patient denies having any suicidal and/or homicidal ideations and does not present with any other emotional, behavioral or mental health complaints. Status: Patient is not a director of perioperative services or dependent. Transition of care: patient was not received from another setting of care. 10:27 Acuity: LETICIA Level 3 jo3 10:27 Method Of Arrival: Walkin/Carried/Asstd jo3 Triage Assessment: 10:35 General: Appears in no apparent distress, comfortable, Behavior is appropriate for age, jo3 cooperative, pleasant. Pain: Location: Left upper quadrant. HIV screening NA for this visit Offered previously. Neurological: Level of Consciousness is awake, alert, Oriented to person, place, time. Respiratory: Airway is patent Respiratory effort is even, unlabored. Derm: Skin is pink, warm & dry. Historical: - Allergies: Versed; - Home Meds: 1. lisinopril 20 mg Oral tab 1 tab bid 2. cyclobenzaprine 10 mg Oral tab 1 tab 3 times per day 3. carvedilol phosphate 40 mg oral CM24 1 cap once daily 4. atorvastatin 40 mg oral tab 1 tab once daily 5. Lantus 100 unit/mL Sub-Q soln 40 units nightly 6. metformin 500 mg Oral tab 4 tabs daily 7. cholecalciferol (vitamin D3) 50,000 unit oral tab monthly 8. fenofibrate 160 mg oral tab 1 tab once daily 9. [place]-3 oral 1000mg oral 2 caps twice a day 10. aspirin 81 mg Oral tab 1 tab once daily - PMHx: [place]; Diabetes - IDDM: controlled; Hypertension; Hypercholesterolemia; - PSHx: AICD implanted; nasal septal surgery; - Social history: Smoking status: Patient uses tobacco products, heavy tobacco smoker. No barriers to communication noted, The patient speaks fluent Japanese, Speaks appropriately for age. - Family history: Not pertinent. - : The pt / caregiver states he / she is not on anticoagulants. Home medication list is obtained from the patient. - Exposure Risk Screening:: None identified. Screenin:37 Screening information is obtained from the patient. Primary language is Japanese. Fall jam1 risk: No risks identified. Assistance ADL's: requires no assistance with activities of daily living. Abuse/DV Screen: The patient / caregiver reports he/she is: not in a situation that causes fear, pain or injury. Nutritional screening: No deficits noted. Exposure Risk Screening: None identified. Advance Directives: Currently, there is no health care proxy. There is no active DNR order. There is no living will. There is no Power of [employer]. Advance directive information has not previously been placed in an [facility] medical record. Further advance directive information is declined. home support is adequate. Assessment: 10:59 General: Appears in no apparent distress, well nourished, Behavior is appropriate for ttb age, cooperative, pleasant. Pain: Location: left upper quad. Neurological: Level of Consciousness is awake, alert. Cardiovascular: Chest pain is denied. Respiratory: Airway is patent Respiratory effort is even, unlabored, Denies cough, shortness of breath. GI: Abdomen is obese, Reports upper abdominal pain, nausea, Denies constipation, diarrhea, vomiting. : Denies burning with urination, urinary frequency, urgency. Derm: Skin is normal. Injury Description: No known injury. 11:51 General: Appears in no apparent distress, Behavior is cooperative, pt instructed to not mb9 take is metformin for the next [address] with IV contrast. pt instructed to follow up with his PHCP in regards to his metformin in the AM on 04/19/16. pt verbalized his understanding. . Respiratory: Airway is patent Respiratory effort is even, unlabored. Vital Signs: 10:25 BP 138 / 76 LA Sitting (auto/lg); Pulse 75 LA; Resp 18 S; Temp 98.6(O); Pulse Ox 96% on mt4 R/A; Weight 111.13 kg (R); Height 5 ft. 7 in. (170.18 cm) (R); Pain 10/10; 11:40 BP 148 / 80; Pulse 65; Resp 20; Temp 98.0; Pulse Ox 96% ; Pain 2/10; jam1 13:34 BP 148 / 90; Pulse 63; Resp 20; Temp 97.4; Pulse Ox 96% ; Pain 6/10; jam1 10:25 Body Mass Index 38.37 (111.13 kg, 170.18 cm) mt4 Vitals: 10:25 Log In Time: April 18, 2016 at 10:21. mt4 10:25 RN notified that patient meets Red Flag criteria. mt4 ED Course: 10:24 Patient visited by Anahi Singh. mt4 10:24 Hans Pereyra is Private Physician. mt4 10:24 Patient moved to Waiting mt4 10:29 Triage Initiated jo3 10:33 Patient moved to Pre RCE kr3 10:37 Patient visited by Tawny [place] RN. jo3 10:37 Patient moved to Triage 2 jo3 10:39 [facility] ar2 10:39 Aries Roy MD is Attending Physician. ar2 10:39 Patient visited by Fabrice Saucedo PA-C. ar2 10:47 Patient moved to I7 / kr3 10:59 Amylase Sent. ttb 10:59 Basic Metabolic Profile Sent. ttb 10:59 CBC with Diff Sent. ttb 10:59 Lipase Sent. ttb 10:59 Liver Profile Sent. ttb 11:01 Patient visited by Nika Moreno RN. ttb 11:02 Pt greeted and oriented to ED. Patient advised of names of staff involved in care, [facility] location of call mena, wait times and NPO status. Patient has correct armband on for positive identification. Placed in gown. Bed in low position. Call light in reach. Side rails up X 1. Adult w/ patient. Door closed. 11:13 [facility] [place] Agreement was scanned into [email or web address] and attached to record. lg 11:51 Patient visited by Carlos Chua,JOSIE. mb9 12:57 Patient has correct armband on for positive identification. Bed in low position. Call jam1 light in reach. Side rails up X 1. Door closed. 13:09 Patient visited by Cristela Diaz RN. dls 13:10 UA Sent. dls 13:30 Hans Pereyra is Referral Physician. ar2 13:33 Patient visited by Lindy Teran PCA. jam1 13:43 EKG-ADULT Returned. EDMS 13:49 Discontinued IV lock intact, bleeding controlled, pressure dressing applied, No dls redness/swelling at site. No procedures done that require assistance. 13:50 The patient / caregiver is instructed regarding the plan of care and ED course. dls 14:20 CT ABD & PELVIS: IV Contrast Only Returned. EDMS 17:33 ECG/EKG was scanned into [email or web address] and attached to record. kf3 19:53 T-Sheet-- Draft Copy was scanned into [email or web address] and attached to record. klr Administered Medications: 11:07 Drug: NS 0.9% 1000 ml [sodium chloride 0.9 % intravenous solution] Route: IV; Rate: 250 dls mL/hr; Site: right hand; 11:07 Drug: morphine 4 mg [morphine 4 mg/mL intravenous cartridge (1 mL)] Route: IVP; Site: dls right hand; 13:17 Drug: Ondansetron 4 mg [ondansetron HCl 2 mg/mL intravenous solution (2 mL)] Route: dls IVP; Site: right antecubital; 13:48 Follow up: Response: Nausea is decreased dls 13:47 Drug: GI Cocktail - (Alum-Mag Hydroxide-Simeth Suspension 225 mg-200 mg-25 mg/5 mL 30 dls ml, Lidocaine Liquid 2 % 10 ml, Hyoscyamine Liquid 10 ml) Route: PO; 13:48 Follow up: Response: Pt left department before re-evaluation is appropriate dls Order Results: Lab Order: Amylase; SPEC'M 04/18/16 10:51 Test: AMYLASE; Value: 60; Range: 25-115; Units: U/L; Status: F Lab Order: Basic Metabolic Profile; SPEC'M 04/18/16 10:51 Test: GLUCOSE, FASTING; Value: 251; Range: 70-105; Abnormal: Above high normal; Units: MG/DL; Status: F Test: BLOOD UREA NITROGEN; Value: 15; Range: 7-18; Units: MG/DL; Status: F Test: CREATININE FOR GFR; Value: 0.98; Range: 0.70-1.30; Units: MG/DL; Status: F Test: GLOMERULAR FILTRATION RATE; Value: > 60.0; Range: >56; Status: F Test: SODIUM LEVEL; Value: 141; Range: 136-145; Units: MEQ/L; Status: F Test: POTASSIUM SERUM; Value: 4.2; Range: 3.5-5.1; Units: MEQ/L; Status: F Test: CHLORIDE LEVEL; Value: 108; Range: 98-107; Abnormal: Above high normal; Units: MEQ/L; Status: F Test: CARBON DIOXIDE LEVEL; Value: 25; Range: 21-32; Units: MEQ/L; Status: F Test: ANION GAP; Value: 8; Range: 8-16; Units: MEQ/L; Status: F Test: CALCIUM LEVEL; Value: 9.2; Range: 8.5-10.1; Units: MG/DL; Status: F Test Note: ; Units are mL/min/1.73 m2 Chronic Kidney Disease Staging per NKF: Stage I & II GFR >=60 Normal to Mildly Decreased Stage III GFR 30-59 Moderately Decreased Stage IV GFR 15-29 Severely Decreased Stage V GFR <15 Very Little GFR Left ESRD GFR <15 on EMERGENCY MEDICINE NURSE PRACTITIONER Lab Order: CBC with Diff; SPEC'M 04/18/16 10:51 Test: WHITE BLOOD COUNT; Value: 8.3; Range: 4.0-10.0; Units: K/mm3; Status: F Test: RED BLOOD COUNT; Value: 4.70; Range: 4.30-6.10; Units: M/mm3; Status: F Test: HEMOGLOBIN; Value: 15.0; Range: 14.0-18.0; Units: g/dl; Status: F Test: HEMATOCRIT; Value: 43.7; Range: 42.0-52.0; Units: %; Status: F Test: MEAN CORPUSCULAR VOLUME; Value: 93.2; Range: 80.0-96.0; Units: fl; Status: F Test: MEAN CORPUSCULAR HEMOGLOBIN; Value: 32.0; Range: 27.0-33.0; Units: pg; Status: F Test: MEAN CORPUSCULAR HGB CONC; Value: 34.3; Range: 32.0-36.5; Units: g/dl; Status: F Test: RED CELL DISTRIBUTION WIDTH; Value: 12.6; Range: 11.5-14.5; Units: %; Status: F Test: PLATELET COUNT, AUTOMATED; Value: 215; Range: 150-450; Units: k/mm3; Status: F Test: NEUTROPHILS %; Value: 58.0; Range: 36.0-66.0; Units: %; Status: F Test: LYMPH %; Value: 27.9; Range: 24.0-44.0; Units: %; Status: F Test: MONO %; Value: 7.8; Range: 0.0-5.0; Abnormal: Above high normal; Units: %; Status: F Test: EOS %; Value: 3.0; Range: 0.0-3.0; Units: %; Status: F Test: BASO %; Value: 0.4; Range: 0.0-1.0; Units: %; Status: F Test: LARGE UNSTAINED CELL %; Value: 2.9; Range: 0.0-4.0; Units: %; Status: F Test: NEUTROPHILS #; Value: 4.8; Range: 1.8-7.7; Units: K/mm3; Status: F Test: LYMPH #; Value: 2.3; Range: 1.5-4.5; Units: K/mm3; Status: F Test: MONO #; Value: 0.7; Range: 0.0-0.8; Units: K/mm3; Status: F Test: EOS #; Value: 0.2; Range: 0.0-0.50; Units: K/mm3; Status: F Test: BASO #; Value: 0.0; Range: 0.0-0.2; Units: K/mm3; Status: F Test: LARGE UNSTAINED CELL #; Value: 0.2; Range: 0.0-0.4; Units: K/mm3; Status: F Lab Order: Lipase; SPEC'M 04/18/16 10:51 Test: LIPASE; Value: 150; Range: 73-393; Units: U/L; Status: F Lab Order: Liver Profile; SPEC'M 04/18/16 10:51 Test: AST/SGOT; Value: 20; Range: 15-37; Units: U/L; Status: F Test: ALT/SGPT; Value: 47; Range: 12-78; Units: U/L; Status: F Test: ALKALINE PHOSPHATASE; Value: 53; Range: 45-117; Units: U/L; Status: F Test: BILIRUBIN,TOTAL; Value: 0.3; Range: 0.2-1.0; Units: MG/DL; Status: F Test: BILIRUBIN,DIRECT; Value: < 0.1; Range: 0.0-0.2; Units: MG/DL; Status: F Test: TOTAL PROTEIN; Value: 7.2; Range: 6.4-8.2; Units: GM/DL; Status: F Test: ALBUMIN; Value: 3.8; Range: 3.2-5.2; Units: GM/DL; Status: F Test: ALBUMIN/GLOBULIN RATIO; Value: 1.12; Range: 1.00-1.93; Status: F Lab Order: ; SPEC'M 04/18/16 13:05 Test: APPEARANCE, URINE; Value: CLEAR; Range: CLEAR; Status: F Test: COLOR, URINE; Value: YELLOW; Range: YELLOW; Status: F Test: PH,URINE; Value: 6.0; Range: 5.0-9.0; Units: UNITS; Status: F Test: SPECIFIC GRAVITY URINE AUTO; Value: 1.012; Range: 1.002-1.035; Status: F Test: PROTEIN, URINE AUTO; Value: NEGATIVE; Range: NEGATIVE; Units: mg/dL; Status: F Test: GLUCOSE, URINE (UA) AUTO; Value: 2+; Range: NEGATIVE; Abnormal: Above high normal; Units: mg/dL; Status: F Test: KETONE, URINE AUTO; Value: NEGATIVE; Range: NEGATIVE; Units: mg/dL; Status: F Test: UROBILINOGEN, URINE AUTO; Value: 0.2; Range: 0.0-2.0; Units: mg/dL; Status: F Test: BILIRUBIN, URINE AUTO; Value: NEGATIVE; Range: NEGATIVE; Status: F Test: NITRITE, URINE AUTO; Value: NEGATIVE; Range: NEGATIVE; Status: F Test: LEUKOCYTE ESTERASE, URINE AUTO; Value: NEGATIVE; Range: NEGATIVE; Status: F Test: BLOOD, URINE BLOOD; Value: NEGATIVE; Range: NEGATIVE; Status: F Test: WBC, URINE AUTO; Value: 0; Range: 0-3; Units: /HPF; Status: F Test: RBC, URINE AUTO; Value: 2; Range: 0-3; Units: /HPF; Status: F Test: BACTERIA, URINE AUTO; Value: NEGATIVE; Range: NEGATIVE; Status: F Test: SQUAMOUS EPITHELIAL CELL UR AU; Value: 0; Range: 0-6; Units: /HPF; Status: F Test: HYALINE CAST, URINE AUTO; Value: 0; Range: 0-1; Units: /LPF; Status: F Lab Order: TROPONIN; SPEC'M 04/18/16 10:51 Test: TROPONIN I; Value: < 0.02; Range: < 0.10; Units: NG/ML; Status: F Test Note: ; Troponin I Reference Interval for Siemens [place] LOCI: 99th Percentile= 0.00-0.045 ng/ml Risk Stratification: <= 0.10 ng/ml Decreased Risk for Adverse Clinical Events. 0.10-1.50 ng/ml Increased Risk for Adverse Clinical Events. Evaluation of additional criterion and/or repeat testing in 2-6 hours is suggested to rule out myocardial damage. >= 1.50 ng/ml Indicative of Myocardial Injury. Radiology Order: EKG-ADULT Test: EKG-ADULT REASON FOR EXAMINATION: upper abdominal pain; Stationary ECG Study; [facility] - ED; ; Test Date: 2016-04-18; Pat Name: CESAR HERNANDEZ Department:; Room: -; Gender: M House Parent: kahlil; : 1965 Requested By: FABRICE SAUCEDO PA-C.; Order Number: [id number] Reading MD: Binta Mallory; Measurements; Intervals [place]; Rate: 66 P: 58; DC: 221 QRS: -69; QRSD: 117 T: -6; QT: 390; QTc: 410; Interpretive Statements; SINUS RHYTHM WITH FIRST DEGREE AV BLOCK; MARKED LEFT AXIS DEVIATION; NSTTW ABNORMALITY; ANTEROSEPTAL MYOCARDIAL INFARCTION, OF INDETERMINATE AGE; IVCD; DECREASED RATE 07/23/12; Electronically Signed On 04-18-2016 13:17:15 EST by Binta Mallory; Radiology Order: CT ABD & PELVIS: IV Contrast Only Test: CT ABD & PELVIS: IV Contrast Only REASON FOR EXAMINATION: Diverticulitis; CT of the abdomen and pelvis with IV contrast only, 04/18/2016:; ; Indication: Diverticulitis.; ; Comparison: CTA chest only 07/23/2012, which includes a small portion of upper; abdomen in field of view.; ; Technique: Following IV contrast administration with 100 ml Isovue 370 mg/ml, 3; mm spiral axial sections were performed through the abdomen and pelvis.; ; Small amount of dependent atelectasis and/or scarring noted in lung bases; bilaterally. Pleural based 6 mm nodular density within the lingula is unchanged; from prior study 07/23/2012, therefore considered benign. There is mild diffuse; fatty infiltration of liver. Spleen, pancreas, gallbladder are normal. Adrenal; glands are normal. Kidneys are without hydronephrosis or obstructing ureteral; calculi bilaterally. There are two left renal cortical cysts, largest 3 cm; diameter. Stomach is contracted. There is a 10 mm dense focus in the proximal; gastric body; may be ingested material versus polyp. Moderate fluid is; identified within the small bowel as well as a small fat containing lesion within; the distal ileum of 7 mm diameter on image 102, series 201. Atherosclerotic; changes are noted in the aorta and iliac arteries.; ; The bladder is contracted, prostate is not enlarged. There are few scattered; colonic diverticula and under distension/mild mural thickening within the left; colon. There is moderate stool within the right and transverse colon. There is; no free air or ascites. 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 There are fluid-filled small bowel loops and; mild mural thickening within the left colon which may be secondary to spasm or; mild mural thickening. Findings suggest nonspecific enteritis or; gastroenteritis.; ; Two left renal cortical cysts, largest 3 cm diameter.; ; 10 mm filling defect within the proximal gastric body, may represent ingested; material versus polyp.; ; 7 mm focus of fat within the distal ileum on image 102, series 201. Consider; tiny lipomatous lesion.; ; Clinical follow-up recommended.; ; ; Signed by; Sayra Torres MD 04/19/2016 10:56 A; Outcome: 13:30 Discharge ordered by Provider. ar2 13:49 Discharge Assessment: Patient awake, alert and oriented x 3. No cognitive and/or dls functional deficits noted. Patient verbalized understanding of disposition instructions. patient administered narcotics - no. The following High Risk Discharge criteria are identified: None. Discharged to home ambulatory, with family. Condition: stable. Discharge instructions given to patient, Instructed on discharge instructions, follow up and referral plans. medication usage, Demonstrated understanding of instructions, medications, Pt was receptive of discharge instructions/ teaching. Prescriptions given X 3. CT Study completed. Property :Personal belongings accompany Pt. 13:50 Patient left the ED. dls Signatures: Dispatcher [employer] EDMS Cristela Diaz, RN RN dls Lindy Teran, ART CLASS MODEL ART CLASS MODEL jam1 Augustina Rocha, Reg Reg lg Claudine Iniguez RN RN kr3 Tawny ColoradoRN RN tee3 Cristopher Jamil, Reg Reg kf3 Fabrice Saucedo, PA-Serenity PA-C ar2 Anahi Singh mt4 Nika Moreno, RN RN Carlos MorinRN RN Nazanin George Chart Complete MTDPhilip
--- NOTE | 2016-04-20 21:11 | EDDOCDS ---
Physician Documentation [facility] Name: Cesar Hernandez Age: 50 yrs Sex: Male : 1965 Arrival Date: 04/18/2016 Time: 10:21 Bed I7 Private MD: Hans Pereyra Disposition: 04/18/16 13:30 Discharged to Home/Self Care. Impression: Infectious gastroenteritis and colitis, unspecified, Acute gastritis - possible gastric poly on CT scan. - Condition is Stable. - Discharge Instructions: Gastritis, Adult, Viral Gastroenteritis. - Prescriptions for Carafate 1 gram Oral Tablet - take 1 tablet by ORAL route 4 times per day take on an empty stomach, beginning on waking and last dose at bedtime; 20 tablet. Protonix 40 mg Oral Tablet - take 1 tablet by ORAL route once daily; 30 tablet. ZOFRAN ODT 4 mg - dissolve 1 tablet by ORAL route 4 times per day As needed do not chew, do not swallow whole; 10 tablet. - Medication Reconciliation, Local Pharmacy Hours form. - Follow up: Hans Pereyra; When: 4 - 5 days; Reason: Recheck today's complaints, Continuance of care. - Problem is new. - Symptoms have improved. Historical: - Allergies: Versed; - Home Meds: 1. lisinopril 20 mg Oral tab 1 tab bid 2. cyclobenzaprine 10 mg Oral tab 1 tab 3 times per day 3. carvedilol phosphate 40 mg oral CM24 1 cap once daily 4. atorvastatin 40 mg oral tab 1 tab once daily 5. Lantus 100 unit/mL Sub-Q soln 40 units nightly 6. metformin 500 mg Oral tab 4 tabs daily 7. cholecalciferol (vitamin D3) 50,000 unit oral tab monthly 8. fenofibrate 160 mg oral tab 1 tab once daily 9. [place]-3 oral 1000mg oral 2 caps twice a day 10. aspirin 81 mg Oral tab 1 tab once daily - PMHx: [place]; Diabetes - IDDM: controlled; Hypertension; Hypercholesterolemia; - PSHx: AICD implanted; nasal septal surgery; - Social history: Smoking status: Patient uses tobacco products, heavy tobacco smoker. No barriers to communication noted, The patient speaks fluent Vietnamese, Speaks appropriately for age. - Family history: Not pertinent. - : The pt / caregiver states he / she is not on anticoagulants. Home medication list is obtained from the patient. - Exposure Risk Screening:: None identified. Vital Signs: 04/18 10:25 BP 138 / 76 LA Sitting (auto/lg); Pulse 75 LA; Resp 18 S; Temp 98.6(O); Pulse Ox 96% on mt4 R/A; Weight 111.13 kg / 245 lbs (R); Height 5 ft. 7 in. (170.18 cm) (R); Pain 10/10; 11:40 BP 148 / 80; Pulse 65; Resp 20; Temp 98.0; Pulse Ox 96% ; Pain 2/10; jam1 13:34 BP 148 / 90; Pulse 63; Resp 20; Temp 97.4; Pulse Ox 96% ; Pain 6/10; jam1 10:25 Body Mass Index 38.37 (111.13 kg, 170.18 cm) mt4 MDM: 10:44 Financial registration complete. lg 10:48 IV Saline Lock ordered. ar2 10:48 Undress patient appropriately for examination ordered. ar2 10:48 NS 0.9% 1000 ml IV at 250 mL/hr continuous ordered. ar2 10:48 morphine 4 mg IVP once ordered. ar2 10:49 Amylase Ordered. EDMS 10:49 Basic Metabolic Profile Ordered. EDMS 10:49 CBC with Diff Ordered. EDMS 10:49 Lipase Ordered. EDMS 10:49 Liver Profile Ordered. EDMS 10:49 NOTHING BY MOUTH+DIET ordered. EDMS 10:49 ECG WITH READING ER PHYS+CARDIAG ordered. EDMS 10:49 CT ABD & PELVIS: IV Contrast Only Ordered. EDMS 11:13 [facility] [place] was scanned into [employer] and attached to record. lg 12:24 Basic Metabolic Profile Reviewed. ar2 12:24 CBC with Diff Reviewed. ar2 12:24 Amylase Reviewed. ar2 12:24 Lipase Reviewed. ar2 12:24 Liver Profile Reviewed. ar2 12:27 UA Ordered. EDMS 12:40 TROPONIN Ordered. EDMS 13:09 Ondansetron 4 mg IVP once ordered. ar2 13:09 Basic Metabolic Profile Reviewed. ar2 13:09 Amylase Reviewed. ar2 13:09 Lipase Reviewed. ar2 13:09 Liver Profile Reviewed. ar2 13:09 TROPONIN Reviewed. ar2 13:29 GI Cocktail - (Alum-Mag Hydroxide-Simeth 30 ml, Lidocaine 10 ml, Hyoscyamine 10 ml) PO ar2 once; Pre-mixed 50mL unit dose ordered. 17:33 ECG/EKG was scanned into [employer] and attached to record. kf3 19:53 T-Sheet-- Draft Copy was scanned into [employer] and attached to record. klr Administered Medications: 11:07 Drug: NS 0.9% 1000 ml [sodium chloride 0.9 % intravenous solution] Route: IV; Rate: 250 dls mL/hr; Site: right hand; 11:07 Drug: morphine 4 mg [morphine 4 mg/mL intravenous cartridge (1 mL)] Route: IVP; Site: dls right hand; 13:17 Drug: Ondansetron 4 mg [ondansetron HCl 2 mg/mL intravenous solution (2 mL)] Route: dls IVP; Site: right antecubital; 13:48 Follow up: Response: Nausea is decreased dls 13:47 Drug: GI Cocktail - (Alum-Mag Hydroxide-Simeth Suspension 225 mg-200 mg-25 mg/5 mL 30 dls ml, Lidocaine Liquid 2 % 10 ml, Hyoscyamine Liquid 10 ml) Route: PO; 13:48 Follow up: Response: Pt left department before re-evaluation is appropriate dls Addendum: 04/20/2016 21:09 Radiology Callback: A certified letter will be sent to the patient / guardian. pt sent ml certified letter re formal read of ct ab/p . needs fu mlg. Signatures: Dispatcher [facility] EDNJ Bebeto Santos MD MD ml Cristela Diaz RN Augustina Dhillon, Reg Reg lg Tawny [place] RN RN tee3 Cristopher Jamil, Reg Reg kf3 Eleno Saucedo PA-C PA-C ar2 Nika Moreno RN RN ttb Redder, Kathie klr The chart was reviewed and I authenticate all verbal orders and agree with the evaluation and treatment provided.Corrections: (The following items were deleted from the chart) 04/18 12:41 12:29 TROPONIN+LAB ordered. EDMS EDMS Attachments: 11:13 [facility] [place] Agreement lg 17:33 ECG/EKG kf3 19:53 T-Sheet-- Draft Copy klr Chart Complete MTDD
--- NOTE | 2016-04-20 21:11 | EDDOCDS ---
Physician Documentation [facility] Name: Cesar Hernandez Age: 50 yrs Sex: Male : 1965 Arrival Date: 04/18/2016 Time: 10:21 Bed I7 Private MD: Hans Pereyra Disposition: 04/18/16 13:30 Discharged to Home/Self Care. Impression: Infectious gastroenteritis and colitis, unspecified, Acute gastritis - possible gastric poly on CT scan. - Condition is Stable. - Discharge Instructions: Gastritis, Adult, Viral Gastroenteritis. - Prescriptions for Carafate 1 gram Oral Tablet - take 1 tablet by ORAL route 4 times per day take on an empty stomach, beginning on waking and last dose at bedtime; 20 tablet. Protonix 40 mg Oral Tablet - take 1 tablet by ORAL route once daily; 30 tablet. ZOFRAN ODT 4 mg - dissolve 1 tablet by ORAL route 4 times per day As needed do not chew, do not swallow whole; 10 tablet. - Medication Reconciliation, Local Pharmacy Hours form. - Follow up: Hans Pereyra; When: 4 - 5 days; Reason: Recheck today's complaints, Continuance of care. - Problem is new. - Symptoms have improved. Historical: - Allergies: Versed; - Home Meds: 1. lisinopril 20 mg Oral tab 1 tab bid 2. cyclobenzaprine 10 mg Oral tab 1 tab 3 times per day 3. carvedilol phosphate 40 mg oral CM24 1 cap once daily 4. atorvastatin 40 mg oral tab 1 tab once daily 5. Lantus 100 unit/mL Sub-Q soln 40 units nightly 6. metformin 500 mg Oral tab 4 tabs daily 7. cholecalciferol (vitamin D3) 50,000 unit oral tab monthly 8. fenofibrate 160 mg oral tab 1 tab once daily 9. [place]-3 oral 1000mg oral 2 caps twice a day 10. aspirin 81 mg Oral tab 1 tab once daily - PMHx: [place]; Diabetes - IDDM: controlled; Hypertension; Hypercholesterolemia; - PSHx: AICD implanted; nasal septal surgery; - Social history: Smoking status: Patient uses tobacco products, heavy tobacco smoker. No barriers to communication noted, The patient speaks fluent Bengali, Speaks appropriately for age. - Family history: Not pertinent. - : The pt / caregiver states he / she is not on anticoagulants. Home medication list is obtained from the patient. - Exposure Risk Screening:: None identified. Vital Signs: 04/18 10:25 BP 138 / 76 LA Sitting (auto/lg); Pulse 75 LA; Resp 18 S; Temp 98.6(O); Pulse Ox 96% on mt4 R/A; Weight 111.13 kg / 245 lbs (R); Height 5 ft. 7 in. (170.18 cm) (R); Pain 10/10; 11:40 BP 148 / 80; Pulse 65; Resp 20; Temp 98.0; Pulse Ox 96% ; Pain 2/10; jam1 13:34 BP 148 / 90; Pulse 63; Resp 20; Temp 97.4; Pulse Ox 96% ; Pain 6/10; jam1 10:25 Body Mass Index 38.37 (111.13 kg, 170.18 cm) mt4 MDM: 10:44 Financial registration complete. lg 10:48 IV Saline Lock ordered. ar2 10:48 Undress patient appropriately for examination ordered. ar2 10:48 NS 0.9% 1000 ml IV at 250 mL/hr continuous ordered. ar2 10:48 morphine 4 mg IVP once ordered. ar2 10:49 Amylase Ordered. EDMS 10:49 Basic Metabolic Profile Ordered. EDMS 10:49 CBC with Diff Ordered. EDMS 10:49 Lipase Ordered. EDMS 10:49 Liver Profile Ordered. EDMS 10:49 NOTHING BY MOUTH+DIET ordered. EDMS 10:49 ECG WITH READING ER PHYS+CARDIAG ordered. EDMS 10:49 CT ABD & PELVIS: IV Contrast Only Ordered. EDMS 11:13 [facility] Payment Agreement was scanned into [employer] and attached to record. lg 12:24 Basic Metabolic Profile Reviewed. ar2 12:24 CBC with Diff Reviewed. ar2 12:24 Amylase Reviewed. ar2 12:24 Lipase Reviewed. ar2 12:24 Liver Profile Reviewed. ar2 12:27 UA Ordered. EDMS 12:40 TROPONIN Ordered. EDMS 13:09 Ondansetron 4 mg IVP once ordered. ar2 13:09 Basic Metabolic Profile Reviewed. ar2 13:09 Amylase Reviewed. ar2 13:09 Lipase Reviewed. ar2 13:09 Liver Profile Reviewed. ar2 13:09 TROPONIN Reviewed. ar2 13:29 GI Cocktail - (Alum-Mag Hydroxide-Simeth 30 ml, Lidocaine 10 ml, Hyoscyamine 10 ml) PO ar2 once; Pre-mixed 50mL unit dose ordered. 17:33 ECG/EKG was scanned into [employer] and attached to record. kf3 19:53 T-Sheet-- Draft Copy was scanned into [employer] and attached to record. klr Administered Medications: 11:07 Drug: NS 0.9% 1000 ml [sodium chloride 0.9 % intravenous solution] Route: IV; Rate: 250 dls mL/hr; Site: right hand; 11:07 Drug: morphine 4 mg [morphine 4 mg/mL intravenous cartridge (1 mL)] Route: IVP; Site: dls right hand; 13:17 Drug: Ondansetron 4 mg [ondansetron HCl 2 mg/mL intravenous solution (2 mL)] Route: dls IVP; Site: right antecubital; 13:48 Follow up: Response: Nausea is decreased dls 13:47 Drug: GI Cocktail - (Alum-Mag Hydroxide-Simeth Suspension 225 mg-200 mg-25 mg/5 mL 30 dls ml, Lidocaine Liquid 2 % 10 ml, Hyoscyamine Liquid 10 ml) Route: PO; 13:48 Follow up: Response: Pt left department before re-evaluation is appropriate dls Addendum: 04/20/2016 21:09 Radiology Callback: A certified letter will be sent to the patient / guardian. pt sent ml certified letter re formal read of ct ab/p . needs fu mlg. Signatures: [facility] Bebeto Santos MD MD ml Cristela Diaz RN Augustina Dhillon, Reg Reg lg Tawny [place] RN RN tee3 Cristopher Jamil, Reg Reg kf3 Eleno Saucedo PA-C PA-C ar2 Nika Moreno RN RN ttb Redder, Kathie klr The chart was reviewed and I authenticate all verbal orders and agree with the evaluation and treatment provided.Corrections: (The following items were deleted from the chart) 04/18 12:41 12:29 TROPONIN+LAB ordered. EDMS EDMS Attachments: 11:13 [facility] Payment Agreement lg 17:33 ECG/EKG kf3 19:53 T-Sheet-- Draft Copy klr Chart Complete MTDD
== END 2016-04-18 13:50 | disposition home or self-care (01) ==
LOC: M ED 10:21
DX: K29.00 Acute gastritis without bleeding (principal); K52.9 Noninfective gastroenteritis and colitis, unspecified; E10.9 Type 1 diabetes mellitus without complications; I10 Essential (primary) hypertension; E78.00 Pure hypercholesterolemia, unspecified; F17.210 Nicotine dependence, cigarettes, uncomplicated; I25.2 Old myocardial infarction; Z95.810 Presence of automatic (implantable) cardiac defibrillator; Z79.82 Long term (current) use of aspirin; Z79.4 Long term (current) use of insulin; Z79.899 Other long term (current) drug therapy; Z88.8 Allergy status to other drugs, medicaments and biological substances